=== PATIENT | male | born 1950 | race Caucasian/White ===

== ENCOUNTER 2019-01-30 20:08 | Inpatient (IN) | payer MEDICARE ==
[~2019-01-30] VITALS: Ht 175.3 cm; Wt 59.9 kg
[2019-01-30 20:29] LABS: BASO # 0.1 x10^3/uL (0.0-0.2); BASO % 0 % (0-3); EOS # 0.1 x10^3/uL (0.0-0.7); EOS % 1 % (0-3); HEMATOCRIT 34.8 % (39.0-53.0); HEMOGLOBIN 11.4 g/dL (13.0-17.5); LYMPH # 1.1 x10^3/uL (1.0-4.8); LYMPH % 8 % (24-48); MEAN CORPUSCULAR HEMOGLOBIN 30 pg (25-35); MEAN CORPUSCULAR HGB CONC 33 g/dL (31-37); MEAN CORPUSCULAR VOLUME 90 fL (79-100); MONO # 1.2 x10^3/uL (0.0-1.1); MONO % 9 % (0-9); NEUT # 11.7 x10^3/uL (1.8-7.7); NEUT % 82 % (31-73); PLATELET COUNT 598 x10^3/uL (140-400); RED BLOOD COUNT 3.87 x10^6/uL (4.30-5.70); WHITE BLOOD COUNT 14.2 x10^3/uL (4.0-11.0)
[2019-01-30] MEDS ORDERED: IV NORMAL SALINE 1000ML BAG 1,000 ML IV ONE (20:30)
[2019-01-30 20:36] LABS: CALCIUM 8.2 mg/dL (8.5-10.1); CREATININE 0.8 mg/dL (0.7-1.3); GFR 96.1; POTASSIUM 4.6 mmol/L (3.5-5.1); PROTHROMBIN TIME PATIENT 15.4 SEC (11.7-14.0)
[2019-01-30 20:44] LABS: ALBUMIN 2.5 g/dL (3.4-5.0); ALBUMIN/GLOBULIN RATIO 0.7 (1.0-1.7); TOTAL BILIRUBIN 0.5 mg/dL (0.2-1.0); TOTAL PROTEIN 6.2 g/dL (6.4-8.2)
[2019-01-30] MEDS ORDERED: PANTOPRAZOLE IV PUSH 40 MG VIAL. IVP ONE (21:00)
--- NOTE | 2019-01-30 21:11 | PHYS DOC ---
Past Medical History Past Medical History: Arthritis, Other Additional Past Medical Histor: WEAK BLADDER, PARAPALEGIA, SPINAL CHORD INJURY Past Surgical History: Knee Replacement, Other Additional Past Surgical Histo: BLADDER Alcohol Use: Heavy Additional Information: 1 PINT WHISKEY/WEEK Drug Use: None Adult General Chief Complaint Chief Complaint: RECTAL BLEED [facility] HPI Patient is a 68 year old male who presents via EMS with complaining of rectal bleeding. Patient has chronic spinal cord injury with paraplegia and constipation and usually has bowel movements every 2 or 3 days. Patient states he did not have a good bowel movement for almost 2 weeks and had about 2 days ago after taking MiraLAX. Patient states he had the spontaneous rectal bleeding with large amount of blood on the floor of kitchen. Patient denies using anticoagulation medication or history of rectal bleeding, shortness of breath and chest pain, fever and chills, urinary symptom. Patient complaining of generalized weakness. Patient had a large rectal prolapse at arrival to ER that was reduced without problem and states he has had history of rectal prolapse and he was able to reduce the prolapse but this time he was not able to reduce the prolapse. Review of Systems Review of Systems Constitutional: Denies fever or chills [] Eyes: Denies change in visual acuity, redness, or eye pain [] HENT: Denies nasal congestion or sore throat [] Respiratory: Denies cough or shortness of breath [] Cardiovascular: No additional information not addressed in HPI [] GI: Denies abdominal pain, nausea, vomiting, diarrhea, reports rectal bleeding [] : Denies dysuria or hematuria [] Musculoskeletal: Denies back pain or joint pain [] Integument: Denies rash or skin lesions [] Neurologic: Denies headache, focal weakness or sensory changes [] Endocrine: Denies polyuria or polydipsia [] All other systems were reviewed and found to be within normal limits, except as documented in this note. Current Medications Current Medications Current Medications Medications (Trade) Dose Ordered Sig/Evaristo Start Time Stop Time Status Last Admin Dose Admin Pantoprazole Sodium (PROTONIX VIAL for IV PUSH) 40 mg 1X ONCE 01/30/19 21:00 01/30/19 21:01 DC 01/30/19 21:40 40 MG Sodium Chloride 1,000 ml @ 1,000 mls/hr 1X ONCE 01/30/19 20:30 01/30/19 21:29 DC 01/30/19 20:50 1,000 MLS/HR Allergies Allergies Allergies Coded Allergies Type Severity Reaction Last Updated Verified No Known Drug Allergies 01/30/19 No Physical Exam Physical Exam Constitutional: Well developed, well nourished, mild distress, non-toxic appearance, mild pallor. [] HENT: Normocephalic, atraumatic. Eyes: PERRLA, EOMI, conjunctiva normal, no discharge. [] Neck: Normal range of motion, no tenderness, supple, no stridor. [] Cardiovascular:Heart rate regular rhythm, no murmur [] Lungs & Thorax: Bilateral breath sounds clear to auscultation [] Abdomen: Bowel sounds normal, soft, no tenderness, no masses, no pulsatile masses. Evaluation of extremity present of N showed a large circular rectal prolapse with mild bleeding that was reduced without problem. Skin: Warm, dry, no erythema, no rash. [] Back: No tenderness, no CVA tenderness. [] Extremities: Left below knee amputation, paraplegic. Neurologic: Alert and oriented X 3, paraplegic Psychologic: Affect normal, judgement normal, mood normal. [] Current Patient Data Vital Signs Vital Signs Date Time Temp Pulse Resp B/P (MAP) Pulse Ox O2 Delivery O2 Flow Rate FiO2 01/30/19 20:35 98.8 90 16 97/55 (69) 96 Room Air 98.8 Lab Values Laboratory Tests Test 01/30/19 20:15 White Blood Count 14.2 x10^3/uL (4.0-11.0) H Red Blood Count 3.87 x10^6/uL (4.30-5.70) L Hemoglobin 11.4 g/dL (13.0-17.5) L Hematocrit 34.8 % (39.0-53.0) L Mean Corpuscular Volume 90 fL (79-100) Mean Corpuscular Hemoglobin 30 pg (25-35) Mean Corpuscular Hemoglobin Concent 33 g/dL (31-37) Red Cell Distribution Width 13.0 % (11.5-14.5) Platelet Count 598 x10^3/uL (140-400) H Neutrophils (%) (Auto) 82 % (31-73) H Lymphocytes (%) (Auto) 8 % (24-48) L Monocytes (%) (Auto) 9 % (0-9) Eosinophils (%) (Auto) 1 % (0-3) Basophils (%) (Auto) 0 % (0-3) Neutrophils # (Auto) 11.7 x10^3/uL (1.8-7.7) H Lymphocytes # (Auto) 1.1 x10^3/uL (1.0-4.8) Monocytes # (Auto) 1.2 x10^3/uL (0.0-1.1) H Eosinophils # (Auto) 0.1 x10^3/uL (0.0-0.7) Basophils # (Auto) 0.1 x10^3/uL (0.0-0.2) Prothrombin Time 15.4 SEC (11.7-14.0) H Prothrombin Time INR 1.3 (0.8-1.1) H Activated Partial Thromboplast Time 28 SEC (24-38) Sodium Level 135 mmol/L (136-145) L Potassium Level 4.6 mmol/L (3.5-5.1) Chloride Level 97 mmol/L (98-107) L Carbon Dioxide Level 26 mmol/L (21-32) Anion Gap 12 (6-14) Blood Urea Nitrogen 15 mg/dL (8-26) Creatinine 0.8 mg/dL (0.7-1.3) Estimated GFR (Cockcroft-Gault) 96.1 BUN/Creatinine Ratio 19 (6-20) Glucose Level 122 mg/dL (70-99) H Calcium Level 8.2 mg/dL (8.5-10.1) L Total Bilirubin 0.5 mg/dL (0.2-1.0) Aspartate Amino Transferase (AST) 16 U/L (15-37) Alanine Aminotransferase (ALT) 20 U/L (16-63) Alkaline Phosphatase 71 U/L (46-116) Troponin I Quantitative < 0.017 ng/mL (0.000-0.055) GM-Oge-R-Type Natriuretic Peptide 157 pg/mL (0-124) H Total Protein 6.2 g/dL (6.4-8.2) L Albumin 2.5 g/dL (3.4-5.0) L Albumin/Globulin Ratio 0.7 (1.0-1.7) L Lipase 57 U/L (73-393) L Laboratory Tests 01/30/19 20:15 Laboratory Tests 01/30/19 20:15 EKG EKG [] Radiology/Procedures Radiology/Procedures [][facility] [address] [place] [address] IMAGING REPORT Signed PATIENT: STEVEN CUMMINS ACCOUNT: [id number] : 1950 LOCATION: 6 SOUTH AGE: 68 SEX: M EXAM STATUS: ADM IN ORD. PHYSICIAN: CORDELIA GAUTHIER MD REASON: rectal bleeding and anal prolapse PROCEDURE: CT ABD PELV W/ IV CONTRST ONLY Exam: CT abdomen and pelvis with contrast INDICATION: Rectal bleeding TECHNIQUE: Sequential axial images through the abdomen and pelvis obtained following the administration of 75 mL of Omnipaque 300 IV contrast. Sagittal and coronal reformatted images were reconstructed from the axial data and reviewed. Comparisons: None FINDINGS: Heart size is normal. No pericardial effusion. 4 mm nodule left lower lobe series 2 image 6. No pleural effusion. Vague hypoattenuating lesion within the right hepatic lobe series 2 image 16 measuring 1.4 cm. Otherwise, liver, spleen, pancreas and adrenals are unremarkable. Gallbladder is distended. Kidneys demonstrate symmetric enhancement. No perinephric inflammation or hydronephrosis. No renal or ureteral calculi are identified. Bladder is partially distended and appears thin walled. Uterus is absent. Diffuse circumferential wall thickening at the rectum with surrounding haziness in the adjacent fat. There is a very large stool burden within a dilated colon. The small bowel is unremarkable. Small hiatal hernia. No free intra-abdominal air or fluid. Abdominal aorta has a normal course and caliber. Abdominal vasculature is patent. No enlarged intra-abdominal lymph nodes are identified. Partially visualized peripheral enhancing fluid collection adjacent to the left ischial Tuberosity. This measures at least 4.7 cm in size. Metallic fragments in the posterior paraspinal soft tissues as well as one in the spinal canal at the T12-L1 level. No suspicious osseous lesion or acute fracture. No suspicious osseous lesions or acute fractures. IMPRESSION: 1. Diffuse circumferential wall thickening and submucosal edema of the rectum with adjacent inflammatory changes. This is favored to be infectious or inflammatory in etiology, however colonoscopy post treatment to ensure no underlying lesion is recommended. 2. Dilated colon diffusely full of stool. This may be secondary to obstruction at the rectum given the above findings. 3. Partially visualized fluid collection adjacent to the left ischial tuberosity. Correlate with physical exam to determine need for further imaging. Differential considerations include abscess or ulcer. 4. Vague hypoattenuating lesion within the right hepatic lobe measuring 1.4 cm. Further evaluation with nonemergent abdomen MRI with and without contrast is recommended. 5. A 4 mm pulmonary nodule left lower lobe. In a low-risk patient no further follow-up imaging is recommended. A high-risk patient and optional one-year follow-up CT can BE performed. Exposure: One or more of the following in the visualized dose reduction techniques were utilized for this examination: 1. Automated exposure control 2. Adjustment of the MA and/or KV according to patient size 3. Use of iterative of reconstructive technique Electronically signed by: Rex Wallace MD (01/30/2019 10:12 PM) [facility] DICTATED and SIGNED BY: RXE WALLACE MD DATE: 01/30/192211 Course & Med Decision Making Course & Med Decision Making Pertinent Labs and Imaging studies reviewed. (See chart for details) Evaluation of patient in ER showed 68-year-old male patient brought in by EMS with rectal bleeding. Patient had a large rectal prolapse that is reduced without problem. Hemoglobin was 11. CT abdomen showed rectal inflammation and fluid collection and pelvis. Patient did not have fever or toxic symptom. Patient requiring admission for further evaluation and treatment. Discussed with Dr. Vicente who is in agreement with admission. Discussed findings and plan with patient and family, who acknowledge understanding and agreement. Dragon Disclaimer Dragon Disclaimer This electronic medical record was generated, in whole or in part, using a voice recognition dictation system. Departure Departure Impression: Primary Impression: Rectal bleeding Additional Impressions: Rectal prolapse Paraplegia Below knee amputation status Disposition: ADMITTED INPATIENT (at 2107) Admitting Physician: Ti Vicente (accepted admission at 2107) Condition: IMPROVED Problem Qualifiers Additional Impressions: Below knee amputation status Laterality: left Qualified Codes: Z89.512 - Acquired absence of left leg below knee CORDELIA GAUTHIER MD Jan 30, 2019 21:11
[2019-01-30] MEDS ORDERED: IOHEXOL 300 MG/ML 100ML VIAL. IV ONE (21:30)
[2019-01-30] MEDS ORDERED: CONTRAST GIVEN. MC PRN (21:30)
[2019-01-30] MEDS ORDERED: ONDANSETRON PF 4 MG/2 ML VIAL. IV PRN (22:00)
--- NOTE | 2019-01-30 22:15 | RAD ---
Exam: CT abdomen and pelvis with contrast INDICATION: Rectal bleeding TECHNIQUE: Sequential axial images through the abdomen and pelvis obtained following the administration of 75 mL of Omnipaque 300 IV contrast. Sagittal and coronal reformatted images were reconstructed from the axial data and reviewed. Comparisons: None FINDINGS: Heart size is normal. No pericardial effusion. 4 mm nodule left lower lobe series 2 image 6. No pleural effusion. Vague hypoattenuating lesion within the right hepatic lobe series 2 image 16 measuring 1.4 cm. Otherwise, liver, spleen, pancreas and adrenals are unremarkable. Gallbladder is distended. Kidneys demonstrate symmetric enhancement. No perinephric inflammation or hydronephrosis. No renal or ureteral calculi are identified. Bladder is partially distended and appears thin walled. Uterus is absent. Diffuse circumferential wall thickening at the rectum with surrounding haziness in the adjacent fat. There is a very large stool burden within a dilated colon. The small bowel is unremarkable. Small hiatal hernia. No free intra-abdominal air or fluid. Abdominal aorta has a normal course and caliber. Abdominal vasculature is patent. No enlarged intra-abdominal lymph nodes are identified. Partially visualized peripheral enhancing fluid collection adjacent to the left ischial Tuberosity. This measures at least 4.7 cm in size. Metallic fragments in the posterior paraspinal soft tissues as well as one in the spinal canal at the T12-L1 level. No suspicious osseous lesion or acute fracture. No suspicious osseous lesions or acute fractures. IMPRESSION: 1. Diffuse circumferential wall thickening and submucosal edema of the rectum with adjacent inflammatory changes. This is favored to be infectious or inflammatory in etiology, however colonoscopy post treatment to ensure no underlying lesion is recommended. 2. Dilated colon diffusely full of stool. This may be secondary to obstruction at the rectum given the above findings. 3. Partially visualized fluid collection adjacent to the left ischial tuberosity. Correlate with physical exam to determine need for further imaging. Differential considerations include abscess or ulcer. 4. Vague hypoattenuating lesion within the right hepatic lobe measuring 1.4 cm. Further evaluation with nonemergent abdomen MRI with and without contrast is recommended. 5. A 4 mm pulmonary nodule left lower lobe. In a low-risk patient no further follow-up imaging is recommended. A high-risk patient and optional one-year follow-up CT can BE performed. Exposure: One or more of the following in the visualized dose reduction techniques were utilized for this examination: 1. Automated exposure control 2. Adjustment of the MA and/or KV according to patient size 3. Use of iterative of reconstructive technique Electronically signed by: Rex Duron MD (01/30/2019 10:12 PM) [facility]
[2019-01-30 23:00] VITALS: BP 112/65
[2019-01-31] MEDS: IV NORMAL SALINE 1000ML BAG 1,000 ML IV SCH ×4 (00:34→18:00)
[2019-01-31] MEDS ORDERED: TAMS0.4C97 PO (02:41)
[2019-01-31] MEDS ORDERED: OXYB5TAB7 PO (02:41)
[2019-01-31 03:48] VITALS: BP 98/58
[2019-01-31] MEDS ORDERED: POLY17PO29 PO (06:09)
--- NOTE | 2019-01-31 06:47 | EKG ---
[facility] [address] [place] [address] Test Date: 2019-01-30 Test Time: 20:53:07 Pat Name: STEVEN CUMMINS Department: Room: [facility] Gender: M [employer]: : 1950 Requested By: CORDELIA GAUTHIER Order Number: [id number] Reading MD: Emmanuel Raza MD Measurements Intervals [place] Rate: 92 P: 62 SD: 144 QRS: 46 QRSD: 74 T: 34 QT: 370 QTc: 462 Interpretive Statements SINUS RHYTHM NON-SPECIFIC ST/T CHANGES Electronically Signed On 01-31-2019 16:05:51 CDT by Emmanuel Raza MD
[2019-01-31 07:31] VITALS: BP 122/65
[2019-01-31 07:35] LABS: BASO % 1 % (0-3); EOS # 0.1 x10^3/uL (0.0-0.7); EOS % 2 % (0-3); HEMATOCRIT 26.5 % (39.0-53.0); LYMPH # 1.2 x10^3/uL (1.0-4.8); LYMPH % 18 % (24-48); MEAN CORPUSCULAR HEMOGLOBIN 31 pg (25-35); MEAN CORPUSCULAR HGB CONC 34 g/dL (31-37); MEAN CORPUSCULAR VOLUME 90 fL (79-100); MONO # 0.5 x10^3/uL (0.0-1.1); MONO % 8 % (0-9); NEUT # 4.8 x10^3/uL (1.8-7.7); NEUT % 72 % (31-73); PLATELET COUNT 439 x10^3/uL (140-400); RED BLOOD COUNT 2.95 x10^6/uL (4.30-5.70); RED CELL DISTRIBUTION WIDTH 12.9 % (11.5-14.5); WHITE BLOOD COUNT 6.6 x10^3/uL (4.0-11.0)
--- NOTE | 2019-01-31 09:40 | PDOC2 ---
GELYSWEETIE Yovanny INDUSTRIAL S[employer] AND HEALTH SPECIALIST 01/31/19 0940: UROLOGY CONSULT Date of Consult Date of Consult DATE: 01/31/19 TIME: 09:34 Source Source: Chart review, Patient History of Present Illness Reason for Visit: This 68 year old male was admitted to [facility] for rectal bleeding. Patient has chronic spinal cord injury with paraplegia and constipation and usually has bowel movements every 2 or 3 days. Patient states he did not have a good bowel movement for almost 2 weeks, then he had the spontaneous rectal bleeding with large amount of blood on the floor of kitchen from his rectum. .During the course of his hospitalization he complained of urinary incontinence and so Urology was consulted. RN reports that he had 600 ml of urinary retention and a Sue catheter was inserted. Currently the device is working well, urine is clear yellow and it is not bothersome to the patient. Per patient he was seen by Dr. Philip of [facility] a week ago, who gave him Flomax to take one tab daily. He has the medication with him. He is not sure how long he has been having retention, but reports that his whole body has been "having trouble and going down hill lately." Past Medical History CENTRAL NERVOUS SYSTEM: Other Renal/: Other (LUTS, BPH ) Current Problem List Problems: (1) Neurogenic bladder Current Medications Current Medications Current Medications Info (CONTRAST GIVEN -- Rx MONITORING) 1 each PRN DAILY PRN MC SEE COMMENTS; Start 01/30/19 at 21:30; Stop 02/01/19 at 21:29 Iohexol (Omnipaque 300 Mg/ml) 75 ml 1X ONCE IV Last administered on 01/30/19at 21:42; Start 01/30/19 at 21:30; Stop 01/30/19 at 21:31; Status DC Ondansetron HCl (Zofran) 4 mg PRN Q8HRS PRN IV NAUSEA/VOMITING; Start 01/30/19 at 22:00; Stop 01/31/19 at 21:59 Pantoprazole Sodium (PROTONIX VIAL for IV PUSH) 40 mg 1X ONCE IVP Last administered on 01/30/19at 21:40; Start 01/30/19 at 21:00; Stop 01/30/19 at 21:01; Status DC Polyethylene Glycol (miraLAX PACKET) 17 gm DAILY PO ; Start 01/31/19 at 10:00 Sodium Chloride 1,000 ml @ 150 mls/hr Q6H40M IV Last administered on 01/31/19at 06:18; Start 01/30/19 at 22:00; Stop 01/31/19 at 21:59 Sodium Chloride 1,000 ml @ 1,000 mls/hr 1X ONCE IV Last administered on 01/30/19at 20:50; Start 01/30/19 at 20:30; Stop 01/30/19 at 21:29; Status DC Tamsulosin HCl (Flomax) 0.4 mg HS PO ; Start 01/31/19 at 21:00 Allergies Allergies: Coded Allergies: No Known Drug Allergies (Unverified , 01/30/19) ROS Review Of Systems: CONSTITUTIONAL: No fever or chills EYES: No recent changes SKIN: No rash or itching CARDIOVASCULAR: No chest pain, syncope, palpitations, or edema RESPIRATORY: No SOB or cough GASTROINTESTINAL: No nausea, vomiting or abdominal pain NEUROLOGICAL: No headaches or weakness ENDOCRINE: No cold or heat intolerance GENITOURINARY: + neurogenic bladder MUSCULOSKELETAL: No back pain or joint pain LYMPHATICS: No enlarged lymph nodes PSYCHIATRIC: No anxiety or depression Physical Exam Physical Exam: General: Pleasant, no acute distress, well groomed Eyes: conjunctiva anicteric, eyes full range of motion ENT: moist oral mucosa, normal dentition Neck: Trachea midline, no masses Respiratory: unlabored breathing, not using accessory muscles, Abdomen: nontender, nondistended, no hepatosplenomegaly, no masses Skin: no rashes or skin lesions on visualized skin Psych: normal mood, affect. Alert and oriented x 3. Vitals VITALS Vital Signs Date Time Temp Pulse Resp B/P (MAP) Pulse Ox O2 Delivery O2 Flow Rate FiO2 01/31/19 07:31 98.2 84 18 122/65 (84) 98 Room Air 98.2 Labs Labs Laboratory Tests Test 01/30/19 20:15 01/31/19 06:50 White Blood Count 14.2 x10^3/uL (4.0-11.0) 6.6 x10^3/uL (4.0-11.0) Red Blood Count 3.87 x10^6/uL (4.30-5.70) 2.95 x10^6/uL (4.30-5.70) Hemoglobin 11.4 g/dL (13.0-17.5) 9.0 g/dL (13.0-17.5) Hematocrit 34.8 % (39.0-53.0) 26.5 % (39.0-53.0) Mean Corpuscular Volume 90 fL (79-100) 90 fL (79-100) Mean Corpuscular Hemoglobin 30 pg (25-35) 31 pg (25-35) Mean Corpuscular Hemoglobin Concent 33 g/dL (31-37) 34 g/dL (31-37) Red Cell Distribution Width 13.0 % (11.5-14.5) 12.9 % (11.5-14.5) Platelet Count 598 x10^3/uL (140-400) 439 x10^3/uL (140-400) Neutrophils (%) (Auto) 82 % (31-73) 72 % (31-73) Lymphocytes (%) (Auto) 8 % (24-48) 18 % (24-48) Monocytes (%) (Auto) 9 % (0-9) 8 % (0-9) Eosinophils (%) (Auto) 1 % (0-3) 2 % (0-3) Basophils (%) (Auto) 0 % (0-3) 1 % (0-3) Neutrophils # (Auto) 11.7 x10^3/uL (1.8-7.7) 4.8 x10^3/uL (1.8-7.7) Lymphocytes # (Auto) 1.1 x10^3/uL (1.0-4.8) 1.2 x10^3/uL (1.0-4.8) Monocytes # (Auto) 1.2 x10^3/uL (0.0-1.1) 0.5 x10^3/uL (0.0-1.1) Eosinophils # (Auto) 0.1 x10^3/uL (0.0-0.7) 0.1 x10^3/uL (0.0-0.7) Basophils # (Auto) 0.1 x10^3/uL (0.0-0.2) 0.0 x10^3/uL (0.0-0.2) Prothrombin Time 15.4 SEC (11.7-14.0) Prothromb Time International Ratio 1.3 (0.8-1.1) Activated Partial Thromboplast Time 28 SEC (24-38) Sodium Level 135 mmol/L (136-145) Potassium Level 4.6 mmol/L (3.5-5.1) Chloride Level 97 mmol/L (98-107) Carbon Dioxide Level 26 mmol/L (21-32) Anion Gap 12 (6-14) Blood Urea Nitrogen 15 mg/dL (8-26) Creatinine 0.8 mg/dL (0.7-1.3) Estimated GFR (Cockcroft-Gault) 96.1 BUN/Creatinine Ratio 19 (6-20) Glucose Level 122 mg/dL (70-99) Calcium Level 8.2 mg/dL (8.5-10.1) Total Bilirubin 0.5 mg/dL (0.2-1.0) Aspartate Amino Transf (AST/SGOT) 16 U/L (15-37) Alanine Aminotransferase (ALT/SGPT) 20 U/L (16-63) Alkaline Phosphatase 71 U/L (46-116) Troponin I Quantitative < 0.017 ng/mL (0.000-0.055) XS-Ztb-Z-Type Natriuretic Peptide 157 pg/mL (0-124) Total Protein 6.2 g/dL (6.4-8.2) Albumin 2.5 g/dL (3.4-5.0) Albumin/Globulin Ratio 0.7 (1.0-1.7) Lipase 57 U/L (73-393) Laboratory Tests Test 01/30/19 20:15 01/31/19 06:50 White Blood Count 14.2 x10^3/uL (4.0-11.0) 6.6 x10^3/uL (4.0-11.0) Red Blood Count 3.87 x10^6/uL (4.30-5.70) 2.95 x10^6/uL (4.30-5.70) Hemoglobin 11.4 g/dL (13.0-17.5) 9.0 g/dL (13.0-17.5) Hematocrit 34.8 % (39.0-53.0) 26.5 % (39.0-53.0) Mean Corpuscular Volume 90 fL (79-100) 90 fL (79-100) Mean Corpuscular Hemoglobin 30 pg (25-35) 31 pg (25-35) Mean Corpuscular Hemoglobin Concent 33 g/dL (31-37) 34 g/dL (31-37) Red Cell Distribution Width 13.0 % (11.5-14.5) 12.9 % (11.5-14.5) Platelet Count 598 x10^3/uL (140-400) 439 x10^3/uL (140-400) Neutrophils (%) (Auto) 82 % (31-73) 72 % (31-73) Lymphocytes (%) (Auto) 8 % (24-48) 18 % (24-48) Monocytes (%) (Auto) 9 % (0-9) 8 % (0-9) Eosinophils (%) (Auto) 1 % (0-3) 2 % (0-3) Basophils (%) (Auto) 0 % (0-3) 1 % (0-3) Neutrophils # (Auto) 11.7 x10^3/uL (1.8-7.7) 4.8 x10^3/uL (1.8-7.7) Lymphocytes # (Auto) 1.1 x10^3/uL (1.0-4.8) 1.2 x10^3/uL (1.0-4.8) Monocytes # (Auto) 1.2 x10^3/uL (0.0-1.1) 0.5 x10^3/uL (0.0-1.1) Eosinophils # (Auto) 0.1 x10^3/uL (0.0-0.7) 0.1 x10^3/uL (0.0-0.7) Basophils # (Auto) 0.1 x10^3/uL (0.0-0.2) 0.0 x10^3/uL (0.0-0.2) Prothrombin Time 15.4 SEC (11.7-14.0) Prothromb Time International Ratio 1.3 (0.8-1.1) Activated Partial Thromboplast Time 28 SEC (24-38) Sodium Level 135 mmol/L (136-145) Potassium Level 4.6 mmol/L (3.5-5.1) Chloride Level 97 mmol/L (98-107) Carbon Dioxide Level 26 mmol/L (21-32) Anion Gap 12 (6-14) Blood Urea Nitrogen 15 mg/dL (8-26) Creatinine 0.8 mg/dL (0.7-1.3) Estimated GFR (Cockcroft-Gault) 96.1 BUN/Creatinine Ratio 19 (6-20) Glucose Level 122 mg/dL (70-99) Calcium Level 8.2 mg/dL (8.5-10.1) Total Bilirubin 0.5 mg/dL (0.2-1.0) Aspartate Amino Transf (AST/SGOT) 16 U/L (15-37) Alanine Aminotransferase (ALT/SGPT) 20 U/L (16-63) Alkaline Phosphatase 71 U/L (46-116) Troponin I Quantitative < 0.017 ng/mL (0.000-0.055) PH-Hra-Y-Type Natriuretic Peptide 157 pg/mL (0-124) Total Protein 6.2 g/dL (6.4-8.2) Albumin 2.5 g/dL (3.4-5.0) Albumin/Globulin Ratio 0.7 (1.0-1.7) Lipase 57 U/L (73-393) Images Images CT ABD/PELVIS IMPRESSION: 1. Diffuse circumferential wall thickening and submucosal edema of the rectum with adjacent inflammatory changes. This is favored to be infectious or inflammatory in etiology, however colonoscopy post treatment to ensure no underlying lesion is recommended. 2. Dilated colon diffusely full of stool. This may be secondary to obstruction at the rectum given the above findings. 3. Partially visualized fluid collection adjacent to the left ischial tuberosity. Correlate with physical exam to determine need for further imaging. Differential considerations include abscess or ulcer. 4. Vague hypoattenuating lesion within the right hepatic lobe measuring 1.4 cm. Further evaluation with nonemergent abdomen MRI with and without contrast is recommended. 5. A 4 mm pulmonary nodule left lower lobe. In a low-risk patient no further follow-up imaging is recommended. A high-risk patient and optional one-year follow-up CT can BE performed. Assessment/Plan Assessment/Plan Continue Flomax. Pt is not having any problems with leakage around catheter so do not recommend Ditrpan at this time Recommend keeping Sue in at least over mani weekend to allow for bowel recovery/healing. Will check back with patient on Sunday and re-assess then. Discussed with patient importance of movement and good bowel recovery for better chances of a successful voiding trial. Per Dr. Philip's last Urochart note: Concern for neurogenic bladder vs BPH. Will trial tamsulosin and if no improvement in 6 weeks obtain UDS/cysto. Renal US prior to f/u to r/o hydro, stones, etc. Will go ahead an order Renal US in light of this since patient is in house. Dr. Bueno to rou nd on patient over the weekend. YOUSIF BUENO MD 02/02/19 0922: UROLOGY CONSULT Assessment/Plan Assessment/Plan Agree with continuos bladder drainage till acute problems resolve. If not emptying better after cath dc, then recommend sic q4-6h wa. Will need UDS. Upper tract wnl. SWEETIE HONG APRN Jan 31, 2019 09:40 YOUSIF BUENO MD Feb 02, 2019 09:22
[2019-01-31] MEDS: POLYETHYLENE GLYCOL 3350 17 GM PACKET. PO SCH (10:00)
[2019-01-31 11:50] VITALS: BP 109/52
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
--- NOTE | 2019-01-31 13:23 | RAD ---
Indication: Echogenic bladder versus BHF. TECHNIQUE: Grayscale and color Doppler images of the bilateral kidneys and bladder COMPARISON: None FINDINGS: The left kidney measures 9.1 x 5.5 x 0.4 cm without hydronephrosis. Right kidney measures 9.1 x 5.5 x 4.4 cm without hydronephrosis. Bladder is decompressed with Sue catheter. Aorta and IVC not visualized. IMPRESSION: No hydronephrosis. Electronically signed by: Mervin Conley DO (01/31/2019 1:20 PM) [facility]
[2019-01-31] MEDS: PANTOPRAZOLE 40 MG TABLET.DR. PO SCH (13:49)
--- NOTE | 2019-01-31 14:40 | NUR ---
SW consulted for dc planning. Chart reviewed and pt lives at home alone. Pt might benefit from PT/OT to evaluate skilled needs. Will continue to follow.
[2019-01-31 15:00] VITALS: BP 124/62
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
[2019-01-31] MEDS: ENOXAPARIN 40 MG/0.4 ML SYRINGE. SQ SCH (16:00)
--- NOTE | 2019-01-31 16:17 | NUR ---
Wound care: Patient seen per wound care consult. See wound assessment. Patient has a stage III pressure ulcer to left ischium. Patient had large stool and is cleaned up, linens changed. Wound is cleansed and assessed. Dr. Cortes consulted and assessed wound at bedside. Recommendations for Honey-alginate to wound bed as it is slough covered and cover with Hydrocolloid and drape to keep moisture and stool off of dressing. Dressing applied. Patient is on a P-500 bed. Patient educated on turning every 2 hours. Patient repositioned. Dressing change instructions left in room and extra honey alginate left in room as well. Bed lowered and call light in reach. Will follow patient regarding wound care.
[2019-01-31 19:44] VITALS: BP 118/56
[2019-01-31] MEDS: TAMSULOSIN 0.4 MG CAP.ER.24H. PO SCH (21:30)
[2019-01-31] MEDS: MULTIVITAMIN with MINERAL TABLET. PO SCH (21:30)
[2019-01-31] MEDS: ASCORBIC ACID 500 MG TABLET PO SCH (21:31)
[2019-01-31 23:21] VITALS: BP 92/44
[2019-02-01 03:22] VITALS: BP 96/46
[2019-02-01 04:37] LABS: BASO % 1 % (0-3); EOS # 0.2 x10^3/uL (0.0-0.7); EOS % 3 % (0-3); HEMATOCRIT 24.7 % (39.0-53.0); HEMOGLOBIN 8.5 g/dL (13.0-17.5); LYMPH # 1.2 x10^3/uL (1.0-4.8); LYMPH % 19 % (24-48); MEAN CORPUSCULAR HEMOGLOBIN 31 pg (25-35); MEAN CORPUSCULAR HGB CONC 34 g/dL (31-37); MEAN CORPUSCULAR VOLUME 89 fL (79-100); MONO # 0.5 x10^3/uL (0.0-1.1); MONO % 9 % (0-9); NEUT # 4.2 x10^3/uL (1.8-7.7); NEUT % 68 % (31-73); PLATELET COUNT 412 x10^3/uL (140-400); RED BLOOD COUNT 2.78 x10^6/uL (4.30-5.70); RED CELL DISTRIBUTION WIDTH 12.6 % (11.5-14.5); WHITE BLOOD COUNT 6.2 x10^3/uL (4.0-11.0)
[2019-02-01 04:57] LABS: CALCIUM 7.3 mg/dL (8.5-10.1); CREATININE 0.5 mg/dL (0.7-1.3); GFR 165.4; POTASSIUM 4.2 mmol/L (3.5-5.1)
[2019-02-01 07:00] VITALS: BP 126/62
[2019-02-01] MEDS: PANTOPRAZOLE 40 MG TABLET.DR. PO SCH (07:47)
--- NOTE | 2019-02-01 07:52 | RAD ---
Examination: Frontal view of the abdomen HISTORY: History of rectal bleeding COMPARISON: None available FINDINGS: Mild air distended small bowel loops identified in the mid abdomen. Moderate amount of feces and gas noted in the colon. No evidence of free air noted under the hemidiaphragm. IMPRESSION: 1. Nonspecific bowel gas pattern. 2. Moderate amount of feces and gas noted throughout the colon likely constipation. Electronically signed by: Davin Monahan MD (02/01/2019 7:50 AM) [facility]
[2019-02-01] MEDS: POLYETHYLENE GLYCOL 3350 17 GM PACKET. PO SCH (08:28)
[2019-02-01] MEDS: MULTIVITAMIN with MINERAL TABLET. PO SCH (08:28)
[2019-02-01] MEDS: ASCORBIC ACID 500 MG TABLET PO SCH (08:28)
[2019-02-01 11:00] VITALS: BP 128/64
--- NOTE | 2019-02-01 12:48 | NUR ---
Deborah at [facility] division traffic superintendent at [phone] notified patient is Inpatient and has appointment for Sunday Outpatient with Torsten at 11 a.m. Patient verb. understanding Therapy Manager notified.
--- NOTE | 2019-02-01 13:41 | PDOC ---
PROGRESS NOTES Subjective Subjective Patient without complaint. Objective Objective Vital Signs Date Time Temp Pulse Resp B/P (MAP) Pulse Ox O2 Delivery O2 Flow Rate FiO2 02/01/19 11:00 98.3 75 16 128/64 (85) 97 Room Air 98.3 Intake and Output 02/01/19 06:59 Intake Total 0 ml Output Total 2825 ml Balance -2825 ml Intake Oral 0 ml Output Urine Total 2825 ml # Bowel Movements 3 Physical Exam Abdomen: Normal bowel sounds, Soft, No tenderness Heart: Regular rate Extremities: No edema General: Alert, Oriented X3, No acute distress Lungs: Clear to auscultation Assessment Assessment Problems Medical Problems: (1) Paraplegia Status: Acute (2) Rectal bleeding Status: Acute (3) Rectal prolapse Status: Acute Plan Plan of Care 1. Rectal prolapse - stable since reduction in ER. 2. Acute lower GI bleed - apparently due to prolapse, no evidence of ongoing bleeding. Hgb lower today, still on IVF, have d/c these. Lab shows decreased Fe, start po replacement. 3. pressure ulcer - continue wound care and offloading. 4. urinary retention - continue with Sue and Flomax. Renal u/s unremarkable. 5. malnutrition - continue MVI and diet as tolerated. 6. mobility deficit - continue therapies. Comment Review of Relevant I have reviewed the following items quynh (where applicable) has been applied. Labs Laboratory Tests Test 01/30/19 20:15 01/31/19 06:50 02/01/19 04:00 White Blood Count 14.2 x10^3/uL (4.0-11.0) 6.6 x10^3/uL (4.0-11.0) 6.2 x10^3/uL (4.0-11.0) Red Blood Count 3.87 x10^6/uL (4.30-5.70) 2.95 x10^6/uL (4.30-5.70) 2.78 x10^6/uL (4.30-5.70) Hemoglobin 11.4 g/dL (13.0-17.5) 9.0 g/dL (13.0-17.5) 8.5 g/dL (13.0-17.5) Hematocrit 34.8 % (39.0-53.0) 26.5 % (39.0-53.0) 24.7 % (39.0-53.0) Mean Corpuscular Volume 90 fL (79-100) 90 fL (79-100) 89 fL (79-100) Mean Corpuscular Hemoglobin 30 pg (25-35) 31 pg (25-35) 31 pg (25-35) Mean Corpuscular Hemoglobin Concent 33 g/dL (31-37) 34 g/dL (31-37) 34 g/dL (31-37) Red Cell Distribution Width 13.0 % (11.5-14.5) 12.9 % (11.5-14.5) 12.6 % (11.5-14.5) Platelet Count 598 x10^3/uL (140-400) 439 x10^3/uL (140-400) 412 x10^3/uL (140-400) Neutrophils (%) (Auto) 82 % (31-73) 72 % (31-73) 68 % (31-73) Lymphocytes (%) (Auto) 8 % (24-48) 18 % (24-48) 19 % (24-48) Monocytes (%) (Auto) 9 % (0-9) 8 % (0-9) 9 % (0-9) Eosinophils (%) (Auto) 1 % (0-3) 2 % (0-3) 3 % (0-3) Basophils (%) (Auto) 0 % (0-3) 1 % (0-3) 1 % (0-3) Neutrophils # (Auto) 11.7 x10^3/uL (1.8-7.7) 4.8 x10^3/uL (1.8-7.7) 4.2 x10^3/uL (1.8-7.7) Lymphocytes # (Auto) 1.1 x10^3/uL (1.0-4.8) 1.2 x10^3/uL (1.0-4.8) 1.2 x10^3/uL (1.0-4.8) Monocytes # (Auto) 1.2 x10^3/uL (0.0-1.1) 0.5 x10^3/uL (0.0-1.1) 0.5 x10^3/uL (0.0-1.1) Eosinophils # (Auto) 0.1 x10^3/uL (0.0-0.7) 0.1 x10^3/uL (0.0-0.7) 0.2 x10^3/uL (0.0-0.7) Basophils # (Auto) 0.1 x10^3/uL (0.0-0.2) 0.0 x10^3/uL (0.0-0.2) 0.0 x10^3/uL (0.0-0.2) Prothrombin Time 15.4 SEC (11.7-14.0) Prothromb Time International Ratio 1.3 (0.8-1.1) Activated Partial Thromboplast Time 28 SEC (24-38) Sodium Level 135 mmol/L (136-145) 138 mmol/L (136-145) Potassium Level 4.6 mmol/L (3.5-5.1) 4.2 mmol/L (3.5-5.1) Chloride Level 97 mmol/L (98-107) 105 mmol/L (98-107) Carbon Dioxide Level 26 mmol/L (21-32) 26 mmol/L (21-32) Anion Gap 12 (6-14) 7 (6-14) Blood Urea Nitrogen 15 mg/dL (8-26) 6 mg/dL (8-26) Creatinine 0.8 mg/dL (0.7-1.3) 0.5 mg/dL (0.7-1.3) Estimated GFR (Cockcroft-Gault) 96.1 165.4 BUN/Creatinine Ratio 19 (6-20) Glucose Level 122 mg/dL (70-99) 99 mg/dL (70-99) Calcium Level 8.2 mg/dL (8.5-10.1) 7.3 mg/dL (8.5-10.1) Total Bilirubin 0.5 mg/dL (0.2-1.0) Aspartate Amino Transf (AST/SGOT) 16 U/L (15-37) Alanine Aminotransferase (ALT/SGPT) 20 U/L (16-63) Alkaline Phosphatase 71 U/L (46-116) Troponin I Quantitative < 0.017 ng/mL (0.000-0.055) PN-Yuk-V-Type Natriuretic Peptide 157 pg/mL (0-124) Total Protein 6.2 g/dL (6.4-8.2) Albumin 2.5 g/dL (3.4-5.0) Albumin/Globulin Ratio 0.7 (1.0-1.7) Lipase 57 U/L (73-393) Iron Level 33 ug/dL (65-175) Total Iron Binding Capacity 116 ug/dL (250-450) Iron Saturation 28 % (15-34) Laboratory Tests Test 02/01/19 04:00 White Blood Count 6.2 x10^3/uL (4.0-11.0) Red Blood Count 2.78 x10^6/uL (4.30-5.70) Hemoglobin 8.5 g/dL (13.0-17.5) Hematocrit 24.7 % (39.0-53.0) Mean Corpuscular Volume 89 fL (79-100) Mean Corpuscular Hemoglobin 31 pg (25-35) Mean Corpuscular Hemoglobin Concent 34 g/dL (31-37) Red Cell Distribution Width 12.6 % (11.5-14.5) Platelet Count 412 x10^3/uL (140-400) Neutrophils (%) (Auto) 68 % (31-73) Lymphocytes (%) (Auto) 19 % (24-48) Monocytes (%) (Auto) 9 % (0-9) Eosinophils (%) (Auto) 3 % (0-3) Basophils (%) (Auto) 1 % (0-3) Neutrophils # (Auto) 4.2 x10^3/uL (1.8-7.7) Lymphocytes # (Auto) 1.2 x10^3/uL (1.0-4.8) Monocytes # (Auto) 0.5 x10^3/uL (0.0-1.1) Eosinophils # (Auto) 0.2 x10^3/uL (0.0-0.7) Basophils # (Auto) 0.0 x10^3/uL (0.0-0.2) Sodium Level 138 mmol/L (136-145) Potassium Level 4.2 mmol/L (3.5-5.1) Chloride Level 105 mmol/L (98-107) Carbon Dioxide Level 26 mmol/L (21-32) Anion Gap 7 (6-14) Blood Urea Nitrogen 6 mg/dL (8-26) Creatinine 0.5 mg/dL (0.7-1.3) Estimated GFR (Cockcroft-Gault) 165.4 Glucose Level 99 mg/dL (70-99) Calcium Level 7.3 mg/dL (8.5-10.1) Medications Current Medications Pantoprazole Sodium (PROTONIX VIAL for IV PUSH) 40 mg 1X ONCE IVP Last administered on 01/30/19at 21:40; Start 01/30/19 at 21:00; Stop 01/30/19 at 21:01; Status DC Sodium Chloride 1,000 ml @ 1,000 mls/hr 1X ONCE IV Last administered on 01/30/19at 20:50; Start 01/30/19 at 20:30; Stop 01/30/19 at 21:29; Status DC Iohexol (Omnipaque 300 Mg/ml) 75 ml 1X ONCE IV Last administered on 01/30/19at 21:42; Start 01/30/19 at 21:30; Stop 01/30/19 at 21:31; Status DC Info (CONTRAST GIVEN -- Rx MONITORING) 1 each PRN DAILY PRN MC SEE COMMENTS; Start 01/30/19 at 21:30; Stop 02/01/19 at 21:29 Ondansetron HCl (Zofran) 4 mg PRN Q8HRS PRN IV NAUSEA/VOMITING; Start 01/30/19 at 22:00; Stop 01/31/19 at 21:59; Status DC Sodium Chloride 1,000 ml @ 150 mls/hr Q6H40M IV Last administered on 01/31/19at 13:52; Start 01/30/19 at 22:00; Stop 01/31/19 at 21:59; Status DC Polyethylene Glycol (miraLAX PACKET) 17 gm DAILY PO Last administered on 02/01/19at 08:28; Start 01/31/19 at 10:00 Tamsulosin HCl (Flomax) 0.4 mg HS PO Last administered on 01/31/19at 21:31; Start 01/31/19 at 21:00 Pantoprazole Sodium (Protonix) 40 mg DAILYAC PO Last administered on 02/01/19at 07:47; Start 01/31/19 at 14:00 Enoxaparin Sodium (Lovenox 40mg Syringe) 40 mg Q24H SQ Last administered on 01/31/19at 18:05; Start 01/31/19 at 16:00 Ascorbic Acid (Vitamin C) 500 mg DAILY PO Last administered on 02/01/19at 08:28; Start 01/31/19 at 20:00 Multivitamins (Thera M Plus) 1 tab DAILY PO Last administered on 02/01/19at 08:28; Start 01/31/19 at 20:00 Active Scripts Active Reported Miralax (Polyethylene Glycol 3350) 17 Gm Powd.pack 1 Pkt PO DAILY Oxybutynin Chloride 5 Mg Tablet 5 Mg PO TID Flomax (Tamsulosin Hcl) 0.4 Mg Cap.er.24h 0.4 Mg PO HS Vitals/I & O Vital Sign - Last 24 Hours 01/31/19 01/31/19 01/31/19 01/31/19 15:00 19:44 20:00 23:21 Temp 98.2 98.5 98.2 98.2 98.5 98.2 Pulse 94 82 74 Resp 18 18 18 B/P (MAP) 124/62 (82) 118/56 (76) 92/44 (60) Pulse Ox 96 96 97 O2 Delivery Room Air Room Air Room Air Room Air 02/01/19 02/01/19 02/01/19 02/01/19 03:22 07:00 08:00 11:00 Temp 98.4 97.7 98.3 98.4 97.7 98.3 Pulse 82 89 75 Resp 16 18 16 B/P (MAP) 96/46 (63) 126/62 (83) 128/64 (85) Pulse Ox 96 98 97 O2 Delivery Room Air Room Air Room Air Room Air Intake and Output 01/31/19 01/31/19 02/01/19 14:59 22:59 06:59 Intake Total 0 ml Output Total 325 ml 2500 ml Balance -325 ml -2500 ml RASHAD CISNEROS MD Feb 01, 2019 13:41
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
--- NOTE | 2019-02-01 14:00 | NUR ---
D/W Dr. Kearns drop in Hgb. and patient on lovenox, to continue lovenox.
[2019-02-01] MEDS: FERROUS SULFATE 325 MG TABLET. PO SCH (14:17)
--- NOTE | 2019-02-01 14:18 | PDOC ---
Subjective: Subjective: Hgb now 8.5. 2 BMs today- no blood per nursing Objective: Vital Signs: Vital Signs Date Time Temp Pulse Resp B/P (MAP) Pulse Ox O2 Delivery O2 Flow Rate FiO2 02/01/19 11:00 98.3 75 16 128/64 (85) 97 Room Air 98.3 Labs: Laboratory Tests Test 02/01/19 04:00 White Blood Count 6.2 x10^3/uL (4.0-11.0) Red Blood Count 2.78 x10^6/uL (4.30-5.70) Hemoglobin 8.5 g/dL (13.0-17.5) Hematocrit 24.7 % (39.0-53.0) Mean Corpuscular Volume 89 fL (79-100) Mean Corpuscular Hemoglobin 31 pg (25-35) Mean Corpuscular Hemoglobin Concent 34 g/dL (31-37) Red Cell Distribution Width 12.6 % (11.5-14.5) Platelet Count 412 x10^3/uL (140-400) Neutrophils (%) (Auto) 68 % (31-73) Lymphocytes (%) (Auto) 19 % (24-48) Monocytes (%) (Auto) 9 % (0-9) Eosinophils (%) (Auto) 3 % (0-3) Basophils (%) (Auto) 1 % (0-3) Neutrophils # (Auto) 4.2 x10^3/uL (1.8-7.7) Lymphocytes # (Auto) 1.2 x10^3/uL (1.0-4.8) Monocytes # (Auto) 0.5 x10^3/uL (0.0-1.1) Eosinophils # (Auto) 0.2 x10^3/uL (0.0-0.7) Basophils # (Auto) 0.0 x10^3/uL (0.0-0.2) Sodium Level 138 mmol/L (136-145) Potassium Level 4.2 mmol/L (3.5-5.1) Chloride Level 105 mmol/L (98-107) Carbon Dioxide Level 26 mmol/L (21-32) Anion Gap 7 (6-14) Blood Urea Nitrogen 6 mg/dL (8-26) Creatinine 0.5 mg/dL (0.7-1.3) Estimated GFR (Cockcroft-Gault) 165.4 Glucose Level 99 mg/dL (70-99) Calcium Level 7.3 mg/dL (8.5-10.1) Physical Exam: Physical Exam: GEN: NAD HEENT: Atraumatic, PERRL LUNGS: CTAB HEART: RRR ABD: quiet BS, soft, round, non-tender EXTREMITY: LBKA NEURO/PSYCH: A & O �3 Assessment & Plan: Assessment : A/P: A/P: Rectal bleeding/prolapse, paraplegia Normocytic anemia- Hgb now 8.[address] - rectal wall thickening/inflammation, dilated colon w/ stool, left ischial tuberosity fluid collection, right hepatic lobe lesion, LLL pulm nodule Heartburn, pill dysphagia Chronic constipation CRC screen - none Daily alcohol use - Plan: 1) Continue to treat constipation 2) COnt PPI 3) Await surgery input on Sunday YEYO RUBIO MD Feb 01, 2019 14:18
[2019-02-01 15:00] VITALS: BP 108/61
[2019-02-01] MEDS: ENOXAPARIN 40 MG/0.4 ML SYRINGE. SQ SCH (15:45)
[2019-02-01 19:43] VITALS: BP 116/57
[2019-02-01] MEDS: TAMSULOSIN 0.4 MG CAP.ER.24H. PO SCH (21:22)
[2019-02-01 23:13] VITALS: BP 112/58
[2019-02-02 03:18] VITALS: BP 108/63
[2019-02-02 07:00] VITALS: BP 113/67
[2019-02-02] MEDS: MULTIVITAMIN with MINERAL TABLET. PO SCH (09:12)
[2019-02-02] MEDS: FERROUS SULFATE 325 MG TABLET. PO SCH (09:12)
[2019-02-02] MEDS: PANTOPRAZOLE 40 MG TABLET.DR. PO SCH (09:12)
[2019-02-02] MEDS: ASCORBIC ACID 500 MG TABLET PO SCH (09:12)
[2019-02-02] MEDS: POLYETHYLENE GLYCOL 3350 17 GM PACKET. PO SCH (09:13)
--- NOTE | 2019-02-02 09:55 | PDOC ---
PROGRESS NOTES Subjective Subjective feeling fine, no further bleeding, seems to be against surgery at the moment Objective Objective Vital Signs Date Time Temp Pulse Resp B/P (MAP) Pulse Ox O2 Delivery O2 Flow Rate FiO2 02/02/19 08:00 Room Air 02/02/19 07:00 98.3 69 16 113/67 (82) 95 98.3 Intake and Output 02/02/19 06:59 Intake Total 2560 ml Output Total 4000 ml Balance -1440 ml Intake Oral 1560 ml IV Total 1000 ml Output Urine Total 4000 ml # Bowel Movements 1 Physical Exam Physical Exam prolapse reduced Abdomen: Soft, No tenderness Heart: Regular rate General: Alert, Oriented X3 Psych/Mental Status: Mental status NL Assessment Assessment Problems Medical Problems: (1) Paraplegia Status: Acute (2) Rectal bleeding Status: Acute (3) Rectal prolapse Status: Acute Plan Plan of Care Will ask Dr Goldman to see tomorrow; pt seems to not want surgery Comment Review of Relevant I have reviewed the following items quynh (where applicable) has been applied. Labs Laboratory Tests Test 02/01/19 04:00 White Blood Count 6.2 x10^3/uL (4.0-11.0) Red Blood Count 2.78 x10^6/uL (4.30-5.70) Hemoglobin 8.5 g/dL (13.0-17.5) Hematocrit 24.7 % (39.0-53.0) Mean Corpuscular Volume 89 fL (79-100) Mean Corpuscular Hemoglobin 31 pg (25-35) Mean Corpuscular Hemoglobin Concent 34 g/dL (31-37) Red Cell Distribution Width 12.6 % (11.5-14.5) Platelet Count 412 x10^3/uL (140-400) Neutrophils (%) (Auto) 68 % (31-73) Lymphocytes (%) (Auto) 19 % (24-48) Monocytes (%) (Auto) 9 % (0-9) Eosinophils (%) (Auto) 3 % (0-3) Basophils (%) (Auto) 1 % (0-3) Neutrophils # (Auto) 4.2 x10^3/uL (1.8-7.7) Lymphocytes # (Auto) 1.2 x10^3/uL (1.0-4.8) Monocytes # (Auto) 0.5 x10^3/uL (0.0-1.1) Eosinophils # (Auto) 0.2 x10^3/uL (0.0-0.7) Basophils # (Auto) 0.0 x10^3/uL (0.0-0.2) Sodium Level 138 mmol/L (136-145) Potassium Level 4.2 mmol/L (3.5-5.1) Chloride Level 105 mmol/L (98-107) Carbon Dioxide Level 26 mmol/L (21-32) Anion Gap 7 (6-14) Blood Urea Nitrogen 6 mg/dL (8-26) Creatinine 0.5 mg/dL (0.7-1.3) Estimated GFR (Cockcroft-Gault) 165.4 Glucose Level 99 mg/dL (70-99) Calcium Level 7.3 mg/dL (8.5-10.1) Medications Current Medications Pantoprazole Sodium (PROTONIX VIAL for IV PUSH) 40 mg 1X ONCE IVP Last administered on 01/30/19at 21:40; Start 01/30/19 at 21:00; Stop 01/30/19 at 21:01; Status DC Sodium Chloride 1,000 ml @ 1,000 mls/hr 1X ONCE IV Last administered on 01/30/19at 20:50; Start 01/30/19 at 20:30; Stop 01/30/19 at 21:29; Status DC Iohexol (Omnipaque 300 Mg/ml) 75 ml 1X ONCE IV Last administered on 01/30/19at 21:42; Start 01/30/19 at 21:30; Stop 01/30/19 at 21:31; Status DC Info (CONTRAST GIVEN -- Rx MONITORING) 1 each PRN DAILY PRN MC SEE COMMENTS; Start 01/30/19 at 21:30; Stop 02/01/19 at 21:29; Status DC Ondansetron HCl (Zofran) 4 mg PRN Q8HRS PRN IV NAUSEA/VOMITING; Start 01/30/19 at 22:00; Stop 01/31/19 at 21:59; Status DC Sodium Chloride 1,000 ml @ 150 mls/hr Q6H40M IV Last administered on 01/31/19at 13:52; Start 01/30/19 at 22:00; Stop 01/31/19 at 21:59; Status DC Polyethylene Glycol (miraLAX PACKET) 17 gm DAILY PO Last administered on 02/02/19 09:13; Start 01/31/19 at 10:00 Tamsulosin HCl (Flomax) 0.4 mg HS PO Last administered on 02/01/19 21:22; Start 01/31/19 at 21:00 Pantoprazole Sodium (Protonix) 40 mg DAILYAC PO Last administered on 02/02/19 09:13; Start 01/31/19 at 14:00 Enoxaparin Sodium (Lovenox 40mg Syringe) 40 mg Q24H SQ Last administered on 02/01/19 15:45; Start 01/31/19 at 16:00 Ascorbic Acid (Vitamin C) 500 mg DAILY PO Last administered on 02/02/19 09:13; Start 01/31/19 at 20:00 Multivitamins (Thera M Plus) 1 tab DAILY PO Last administered on 02/02/19 09:13; Start 01/31/19 at 20:00 Ferrous Sulfate (Feosol) 325 mg DAILYWBKFT PO Last administered on 02/02/19 09:13; Start 02/01/19 at 14:00 Active Scripts Active Reported Miralax (Polyethylene Glycol 3350) 17 Gm Powd.pack 1 Pkt PO DAILY Oxybutynin Chloride 5 Mg Tablet 5 Mg PO TID Flomax (Tamsulosin Hcl) 0.4 Mg Cap.er.24h 0.4 Mg PO HS Vitals/I & O Vital Sign - Last 24 Hours 02/01/19 02/01/19 02/01/19 02/01/19 11:00 15:00 19:43 20:00 Temp 98.3 98.2 98.8 98.3 98.2 98.8 Pulse 75 73 78 Resp 16 12 18 B/P (MAP) 128/64 (85) 108/61 (77) 116/57 (76) Pulse Ox 97 94 96 O2 Delivery Room Air Room Air Room Air Room Air 02/01/19 02/02/19 02/02/19 02/02/19 23:13 03:18 07:00 08:00 Temp 98.9 98.6 98.3 98.9 98.6 98.3 Pulse 71 78 69 Resp 16 18 16 B/P (MAP) 112/58 (76) 108/63 (78) 113/67 (82) Pulse Ox 94 96 95 O2 Delivery Room Air Room Air Room Air Room Air Intake and Output 02/01/19 02/01/19 02/02/19 14:59 22:59 06:59 Intake Total 1140 ml 1420 ml Output Total 900 ml 1500 ml 1600 ml Balance 240 ml -80 ml -1600 ml DIANA DEL TORO MD Feb 02, 2019 09:55
[2019-02-02 11:00] VITALS: BP 107/58
--- NOTE | 2019-02-02 11:20 | PDOC ---
PROGRESS NOTES Subjective Subjective Patient without complaint. Objective Objective Vital Signs Date Time Temp Pulse Resp B/P (MAP) Pulse Ox O2 Delivery O2 Flow Rate FiO2 02/02/19 08:00 Room Air 02/02/19 07:00 98.3 69 16 113/67 (82) 95 98.3 Intake and Output 02/02/19 06:59 Intake Total 2560 ml Output Total 4000 ml Balance -1440 ml Intake Oral 1560 ml IV Total 1000 ml Output Urine Total 4000 ml # Bowel Movements 1 Physical Exam Abdomen: Normal bowel sounds, Soft, No tenderness Heart: Regular rate Extremities: No edema General: Alert, Oriented X3, No acute distress Lungs: Clear to auscultation Assessment Assessment Problems Medical Problems: (1) Paraplegia Status: Acute (2) Rectal bleeding Status: Acute (3) Rectal prolapse Status: Acute Plan Plan of Care 1. Rectal prolapse - stable, no recurrence. Bowels good with Miralax daily. Declines consideration of surgery at this time. 2. Lower GI bleed - no evidence of ongoing blood loss. Check CBC in AM. 3. anemia - iron-deficient, started on po Fe. 4. decubitus ulcer - continue wound care, patient again reminded to keep weight off that area when in bed. 5. urinary retention - continue Sue for now, on Flomax, Urology following. Renal u/s unremarkable. 6. malnutrition - continue MVI and diet as tolerated. 7. mobility deficit - continue therapies. Composition Roofer notified of admission and should see him for new stump socks. Comment Review of Relevant I have reviewed the following items quynh (where applicable) has been applied. Labs Laboratory Tests Test 02/01/19 04:00 White Blood Count 6.2 x10^3/uL (4.0-11.0) Red Blood Count 2.78 x10^6/uL (4.30-5.70) Hemoglobin 8.5 g/dL (13.0-17.5) Hematocrit 24.7 % (39.0-53.0) Mean Corpuscular Volume 89 fL (79-100) Mean Corpuscular Hemoglobin 31 pg (25-35) Mean Corpuscular Hemoglobin Concent 34 g/dL (31-37) Red Cell Distribution Width 12.6 % (11.5-14.5) Platelet Count 412 x10^3/uL (140-400) Neutrophils (%) (Auto) 68 % (31-73) Lymphocytes (%) (Auto) 19 % (24-48) Monocytes (%) (Auto) 9 % (0-9) Eosinophils (%) (Auto) 3 % (0-3) Basophils (%) (Auto) 1 % (0-3) Neutrophils # (Auto) 4.2 x10^3/uL (1.8-7.7) Lymphocytes # (Auto) 1.2 x10^3/uL (1.0-4.8) Monocytes # (Auto) 0.5 x10^3/uL (0.0-1.1) Eosinophils # (Auto) 0.2 x10^3/uL (0.0-0.7) Basophils # (Auto) 0.0 x10^3/uL (0.0-0.2) Sodium Level 138 mmol/L (136-145) Potassium Level 4.2 mmol/L (3.5-5.1) Chloride Level 105 mmol/L (98-107) Carbon Dioxide Level 26 mmol/L (21-32) Anion Gap 7 (6-14) Blood Urea Nitrogen 6 mg/dL (8-26) Creatinine 0.5 mg/dL (0.7-1.3) Estimated GFR (Cockcroft-Gault) 165.4 Glucose Level 99 mg/dL (70-99) Calcium Level 7.3 mg/dL (8.5-10.1) Medications Current Medications Pantoprazole Sodium (PROTONIX VIAL for IV PUSH) 40 mg 1X ONCE IVP Last administered on 01/30/19at 21:40; Start 01/30/19 at 21:00; Stop 01/30/19 at 21:01; Status DC Sodium Chloride 1,000 ml @ 1,000 mls/hr 1X ONCE IV Last administered on 01/30/19at 20:50; Start 01/30/19 at 20:30; Stop 01/30/19 at 21:29; Status DC Iohexol (Omnipaque 300 Mg/ml) 75 ml 1X ONCE IV Last administered on 01/30/19at 21:42; Start 01/30/19 at 21:30; Stop 01/30/19 at 21:31; Status DC Info (CONTRAST GIVEN -- Rx MONITORING) 1 each PRN DAILY PRN MC SEE COMMENTS; Start 01/30/19 at 21:30; Stop 02/01/19 at 21:29; Status DC Ondansetron HCl (Zofran) 4 mg PRN Q8HRS PRN IV NAUSEA/VOMITING; Start 01/30/19 at 22:00; Stop 01/31/19 at 21:59; Status DC Sodium Chloride 1,000 ml @ 150 mls/hr Q6H40M IV Last administered on 01/31/19 13:52; Start 01/30/19 at 22:00; Stop 01/31/19 at 21:59; Status DC Polyethylene Glycol (miraLAX PACKET) 17 gm DAILY PO Last administered on 02/02/19 09:13; Start 01/31/19 at 10:00 Tamsulosin HCl (Flomax) 0.4 mg HS PO Last administered on 02/01/19 21:22; Start 01/31/19 at 21:00 Pantoprazole Sodium (Protonix) 40 mg DAILYAC PO Last administered on 02/02/19 09:13; Start 01/31/19 at 14:00 Enoxaparin Sodium (Lovenox 40mg Syringe) 40 mg Q24H SQ Last administered on 02/01/19 15:45; Start 01/31/19 at 16:00 Ascorbic Acid (Vitamin C) 500 mg DAILY PO Last administered on 02/02/19 09:13; Start 01/31/19 at 20:00 Multivitamins (Thera M Plus) 1 tab DAILY PO Last administered on 02/02/19 09:13; Start 01/31/19 at 20:00 Ferrous Sulfate (Feosol) 325 mg DAILYWBKFT PO Last administered on 02/02/19 09:13; Start 02/01/19 at 14:00 Active Scripts Active Reported Miralax (Polyethylene Glycol 3350) 17 Gm Powd.pack 1 Pkt PO DAILY Oxybutynin Chloride 5 Mg Tablet 5 Mg PO TID Flomax (Tamsulosin Hcl) 0.4 Mg Cap.er.24h 0.4 Mg PO HS Vitals/I & O Vital Sign - Last 24 Hours 02/01/19 02/01/19 02/01/19 02/01/19 15:00 19:43 20:00 23:13 Temp 98.2 98.8 98.9 98.2 98.8 98.9 Pulse 73 78 71 Resp 12 18 16 B/P (MAP) 108/61 (77) 116/57 (76) 112/58 (76) Pulse Ox 94 96 94 O2 Delivery Room Air Room Air Room Air Room Air 02/02/19 02/02/19 02/02/19 03:18 07:00 08:00 Temp 98.6 98.3 98.6 98.3 Pulse 78 69 Resp 18 16 B/P (MAP) 108/63 (78) 113/67 (82) Pulse Ox 96 95 O2 Delivery Room Air Room Air Room Air Intake and Output 02/01/19 02/01/19 02/02/19 14:59 22:59 06:59 Intake Total 1140 ml 1420 ml Output Total 900 ml 1500 ml 1600 ml Balance 240 ml -80 ml -1600 ml RASHAD CISNEROS MD Feb 02, 2019 11:19
--- NOTE | 2019-02-02 14:50 | PDOC ---
Subjective: Subjective: no hgb today Objective: Vital Signs: Vital Signs Date Time Temp Pulse Resp B/P (MAP) Pulse Ox O2 Delivery O2 Flow Rate FiO2 02/02/19 11:00 98.8 74 16 107/58 (74) 96 Room Air 98.8 Labs: none today Physical Exam: Physical Exam: Physical Exam: Physical Exam: GEN: NAD HEENT: Atraumatic, PERRL LUNGS: CTAB HEART: RRR ABD: quiet BS, soft, round, non-tender EXTREMITY: LBKA NEURO/PSYCH: A & O �3 Assessment & Plan: Assessment : Assessment & Plan: Assessment : A/P: A/P: Rectal bleeding/prolapse, paraplegia Normocytic anemia- Hgb 8.[address] - rectal wall thickening/inflammation, dilated colon w/ stool, left ischial tuberosity fluid collection, right hepatic lobe lesion, LLL pulm nodule Heartburn, pill dysphagia Chronic constipation CRC screen - none Daily alcohol use - Plan: 1) Continue to treat constipation 2) COnt PPI 3) Await surgery input on Sunday 4) Check Hgb tomorrow YEYO RUBIO MD Feb 02, 2019 14:50
[2019-02-02 15:00] VITALS: BP 114/62
[2019-02-02] MEDS: ENOXAPARIN 40 MG/0.4 ML SYRINGE. SQ SCH (16:19)
--- NOTE | 2019-02-02 18:27 | NUR ---
Gave report to Rose MILNER on this patient. Transferred patient, faired well.
[2019-02-02 19:00] VITALS: BP 104/55
[2019-02-02] MEDS: TAMSULOSIN 0.4 MG CAP.ER.24H. PO SCH (21:14)
[2019-02-02 23:00] VITALS: BP 100/53
[2019-02-03 03:13] VITALS: BP 117/56
[2019-02-03 07:00] VITALS: BP 106/51
[2019-02-03 08:01] LABS: BASO % 1 % (0-3); EOS # 0.1 x10^3/uL (0.0-0.7); EOS % 2 % (0-3); HEMOGLOBIN 9.4 g/dL (13.0-17.5); LYMPH # 1.2 x10^3/uL (1.0-4.8); LYMPH % 19 % (24-48); MEAN CORPUSCULAR HEMOGLOBIN 30 pg (25-35); MEAN CORPUSCULAR HGB CONC 34 g/dL (31-37); MEAN CORPUSCULAR VOLUME 89 fL (79-100); MONO # 0.5 x10^3/uL (0.0-1.1); MONO % 8 % (0-9); NEUT # 4.7 x10^3/uL (1.8-7.7); NEUT % 71 % (31-73); PLATELET COUNT 524 x10^3/uL (140-400); RED BLOOD COUNT 3.16 x10^6/uL (4.30-5.70); WHITE BLOOD COUNT 6.6 x10^3/uL (4.0-11.0)
--- NOTE | 2019-02-03 08:09 | PDOC ---
KENNEDI MORAN APRN 02/03/19 0809: SURGICAL PROGRESS NOTE Subjective feels fine no prolapse currently no bleeding not interested in surgery Vital Signs Vital Signs Date Time Temp Pulse Resp B/P (MAP) Pulse Ox O2 Delivery O2 Flow Rate FiO2 02/03/19 03:13 98.3 79 18 117/56 (76) 96 Room Air 98.3 I&O Intake and Output 02/03/19 07:00 Intake Total 120 ml Output Total 2675 ml Balance -2555 ml Intake Oral 120 ml Output Urine Total 2675 ml # Bowel Movements 1 General: Alert, Oriented X3, Cooperative, No acute distress Abdomen: Soft, No tenderness Problem List Problems Medical Problems: (1) Paraplegia Status: Acute (2) Rectal bleeding Status: Acute (3) Rectal prolapse Status: Acute Assessment/Plan will review with Dr Goldman pt not interested in surgery LEONEL GOLDMAN MD 02/03/19 1131: SURGICAL PROGRESS NOTE Assessment/Plan Pt seen and examined. Agree with Ms. Moran's note Pt history reviewed. With prolapse, decub ulcer and chronic constipation, would favor colostomy. However, pt is not interested in surgery. Will sign off, but please call for questions. KENNEDI MORAN APRN Feb 03, 2019 08:09 LEONEL GOLDMAN MD Feb 03, 2019 11:31
[2019-02-03 08:11] LABS: CALCIUM 7.9 mg/dL (8.5-10.1); CREATININE 0.6 mg/dL (0.7-1.3); POTASSIUM 4.2 mmol/L (3.5-5.1)
[2019-02-03] MEDS: FERROUS SULFATE 325 MG TABLET. PO SCH (08:14)
[2019-02-03] MEDS: POLYETHYLENE GLYCOL 3350 17 GM PACKET. PO SCH (08:14)
[2019-02-03] MEDS: ASCORBIC ACID 500 MG TABLET PO SCH (08:14)
[2019-02-03] MEDS: MULTIVITAMIN with MINERAL TABLET. PO SCH (08:15)
[2019-02-03] MEDS: PANTOPRAZOLE 40 MG TABLET.DR. PO SCH (08:15)
--- NOTE | 2019-02-03 08:51 | PDOC ---
SUBJECTIVE Subjective Pt not in pain or discomfort from catheter. Still having diarrhea, wearing depends for this. Rep from [employer] coming today to help with prosthetic fitting, as he is not able to wear his prosthetic yet, and not very mobile. OBJECTIVE Objective Physical Exam: General appearance: Alert and Oriented Head: Normocephalic, without obvious abnormality Eyes: conjunctivae/corneas clear. PERRL, EOM's intact. Fundi benign Lungs: Regular respirations, non labored breathing Abdomen: soft, non-tender. No masses, no organomegaly Pelvic: + Sue catheter in place draining clear yellow urine. Device in good working order. Vital Signs Vital Signs Date Time Temp Pulse Resp B/P (MAP) Pulse Ox O2 Delivery O2 Flow Rate FiO2 02/03/19 07:00 98.2 65 14 106/51 (69) 96 Room Air 98.2 02/03/19 03:13 98.3 79 18 117/56 (76) 96 Room Air 98.3 02/02/19 23:00 99.1 73 18 100/53 (69) 96 Room Air 99.1 02/02/19 20:11 Room Air 02/02/19 19:00 97.8 66 18 104/55 (71) 100 Room Air 97.8 02/02/19 15:00 98.7 81 18 114/62 (79) 95 Room Air 98.7 02/02/19 11:00 98.8 74 16 107/58 (74) 96 Room Air 98.8 I & O Intake and Output 02/03/19 06:59 Intake Total 120 ml Output Total 2675 ml Balance -2555 ml Intake Oral 120 ml Output Urine Total 2675 ml # Bowel Movements 1 PHYSICAL EXAM Physical Exam Physical Exam: General appearance: Alert and Oriented Head: Normocephalic, without obvious abnormality Eyes: conjunctivae/corneas clear. PERRL, EOM's intact. Fundi benign Lungs: Regular respirations, non labored breathing Abdomen: soft, non-tender. No masses, no organomegaly Pelvic: + Use catheter in place draining clear yellow urine. Device in good w orking order. ASSESSMENT/PLAN Assessment/Plan Pt still having diarrhea, and not very mobile. He is going to have a visit from [facility] to help with prosthetic problems today. Encouraged movement after this happens. Ok to remove Sue today: Orders entered. Please remove Sue catheter and encourage voiding. May void into Condom catheter. Bladder scan between 1 and 2 pm. If PVR is greater than 350 please replace indwelling Sue. If PVR is less than 350 please leave Sue out and encourage voiding into Sue catheter or depends. Upper tract wnl. Pt already has follow up wit Tamera on 03/04/19 at 9 am at [facility] at [address]. Appointment card put on front og chart. [facility] is ordering condom catheters for patient to have them shipped to [facility] per Dr Zacarias's request (Patient's PCP) COMMENT Lab Laboratory Tests Test 02/03/19 06:55 White Blood Count 6.6 x10^3/uL (4.0-11.0) Red Blood Count 3.16 x10^6/uL (4.30-5.70) Hemoglobin 9.4 g/dL (13.0-17.5) Hematocrit 28.0 % (39.0-53.0) Mean Corpuscular Volume 89 fL (79-100) Mean Corpuscular Hemoglobin 30 pg (25-35) Mean Corpuscular Hemoglobin Concent 34 g/dL (31-37) Red Cell Distribution Width 13.0 % (11.5-14.5) Platelet Count 524 x10^3/uL (140-400) Neutrophils (%) (Auto) 71 % (31-73) Lymphocytes (%) (Auto) 19 % (24-48) Monocytes (%) (Auto) 8 % (0-9) Eosinophils (%) (Auto) 2 % (0-3) Basophils (%) (Auto) 1 % (0-3) Neutrophils # (Auto) 4.7 x10^3/uL (1.8-7.7) Lymphocytes # (Auto) 1.2 x10^3/uL (1.0-4.8) Monocytes # (Auto) 0.5 x10^3/uL (0.0-1.1) Eosinophils # (Auto) 0.1 x10^3/uL (0.0-0.7) Basophils # (Auto) 0.0 x10^3/uL (0.0-0.2) Sodium Level 136 mmol/L (136-145) Potassium Level 4.2 mmol/L (3.5-5.1) Chloride Level 103 mmol/L (98-107) Carbon Dioxide Level 28 mmol/L (21-32) Anion Gap 5 (6-14) Blood Urea Nitrogen 4 mg/dL (8-26) Creatinine 0.6 mg/dL (0.7-1.3) Estimated GFR (Cockcroft-Gault) 134.0 Glucose Level 117 mg/dL (70-99) Calcium Level 7.9 mg/dL (8.5-10.1) SWEETIE HONG APRN Feb 03, 2019 08:51
[2019-02-03] MEDS ORDERED: ASCO500T2 PO (09:10)
[2019-02-03] MEDS ORDERED: MULT1TAB90 PO (09:10)
[2019-02-03] MEDS ORDERED: PANT40TA77 PO (09:10)
[2019-02-03] MEDS ORDERED: FERR325T72 PO (09:10)
--- NOTE | 2019-02-03 09:13 | SNU/HH DC ---
DISCHARGE ORDERS DISCHARGE INFORMATION: DISCHARGE DATE: Feb 03, 2019 FINAL DIAGNOSIS Problems Medical Problems: (1) Paraplegia Status: Acute (2) Rectal bleeding Status: Acute (3) Rectal prolapse Status: Acute CONDITION ON DISCHARGE: Stable CODE STATUS: Code Status: Full FCI: SNF STAY <30 DAYS: Yes POST DISCHARGE ORDERS: ACTIVITY ORDERS: Activity as tolerated WEIGHT BEARING STATUS: As tolerated DIET AFTER DISCHARGE: Regular WOUND/INCISION CARE: Change dressing, Routine catheter care, No wound care needed OTHER ORDERS: Condum Cath TREATMENT/EQUIPMENT ORDERS: ADAPTIVE EQUIPMENT NEEDED: Brace/splint, Crutches Physical Therapy For: Evalulation/Treatment Occupational Therapy For: Evaluation/Treatment DISCHARGE MEDICATIONS: Home Meds Active Scripts Multivits,Ca,Minerals/Iron/Fa (THERA-M TABLET) 1 Each Tablet, 1 TAB PO DAILY for Wound care for 30 Days, #30 TAB Prov:GRUPO NAVAS MD 02/03/19 Ascorbic Acid (VITAMIN C) 500 Mg Tablet, 500 MG PO DAILY for suppliment for 30 Days, #30 TAB Prov:GRUPO NAVAS MD 02/03/19 Pantoprazole Sodium (PANTOPRAZOLE SODIUM ) 40 Mg Tablet.dr, 40 MG PO DAILYAC for GI Bleed for 30 Days, #30 TAB.SR Prov:GRUPO NAVAS MD 02/03/19 Ferrous Sulfate (FEOSOL) 325 Mg Tablet, 325 MG PO DAILYWBKFT for anemia for 30 Days, #30 TAB Prov:GRUPO NAVAS MD 02/03/19 Reported Medications Polyethylene Glycol 3350 (MIRALAX) 17 Gm Powd.pack, 1 PKT PO DAILY for cons tipation, PKT 01/31/19 Oxybutynin Chloride (OXYBUTYNIN CHLORIDE) 5 Mg Tablet, 5 MG PO TID for bladder spasms, TAB 01/31/19 Tamsulosin Hcl (FLOMAX) 0.4 Mg Cap.er.24h, 0.4 MG PO HS for retention, TAB 01/31/19 GRUPO NAVAS MD Feb 03, 2019 09:13
--- NOTE | 2019-02-03 10:38 | NUR ---
SS following up with discharge planning. Discharge order on the chart for nursing home unit. SS met with pt in room to discuss discharge planning and nursing home unit. Pt requesting [facility]. SS phoned and faxed referral and discharge orders to [facility], ; fax [phone]. SS awaiting acceptance decision and will proceed accordingly with discharge planning. Pt's RN notified.
[2019-02-03 10:40] VITALS: BP 110/60
--- NOTE | 2019-02-03 10:51 | PDOC ---
Subjective: Subjective: Stooling w/o bleeding, says prolapse not an issue, says he's being advanced to a regular diet. Objective: Objective: Reviewed chart - has discharge orders, has declined surgery. Reviewed w/ RN - stooling. Vital Signs: Vital Signs Date Time Temp Pulse Resp B/P (MAP) Pulse Ox O2 Delivery O2 Flow Rate FiO2 02/03/19 08:00 Room Air 02/03/19 07:00 98.2 65 14 106/51 (69) 96 98.2 Labs: Laboratory Tests Test 02/03/19 06:55 White Blood Count 6.6 x10^3/uL Red Blood Count 3.16 x10^6/uL Hemoglobin 9.4 g/dL Hematocrit 28.0 % Mean Corpuscular Volume 89 fL Mean Corpuscular Hemoglobin 30 pg Mean Corpuscular Hemoglobin Concent 34 g/dL Red Cell Distribution Width 13.0 % Platelet Count 524 x10^3/uL Neutrophils (%) (Auto) 71 % Lymphocytes (%) (Auto) 19 % Monocytes (%) (Auto) 8 % Eosinophils (%) (Auto) 2 % Basophils (%) (Auto) 1 % Neutrophils # (Auto) 4.7 x10^3/uL Lymphocytes # (Auto) 1.2 x10^3/uL Monocytes # (Auto) 0.5 x10^3/uL Eosinophils # (Auto) 0.1 x10^3/uL Basophils # (Auto) 0.0 x10^3/uL Sodium Level 136 mmol/L Potassium Level 4.2 mmol/L Chloride Level 103 mmol/L Carbon Dioxide Level 28 mmol/L Anion Gap 5 Blood Urea Nitrogen 4 mg/dL Creatinine 0.6 mg/dL Estimated GFR (Cockcroft-Gault) 134.0 Glucose Level 117 mg/dL Calcium Level 7.9 mg/dL PE: GEN: NAD LUNGS: CTAB HEART: RRR ABD: NABS, S/ND/NT NEURO/PSYCH: A & O �3 A/P: Rectal bleeding/prolapse, chronic constipation - improved Paraplegia ACD -- Plans for DC as above. Would continue Miralax and PPI long-term. DI PERKINS Feb 03, 2019 10:51
--- NOTE | 2019-02-03 13:18 | NUR ---
SS following up with discharge planning. Pt accepted at [facility]. Pt will discharge today and go to [facility] at 1400 via [facility] transport, . Pt and pt's RN notified.
--- NOTE | 2019-02-03 14:30 | NUR ---
Discharge Note: LEATHA CUMMINS CANTON Discharge instructions and discharge home medications reviewed with Other facility and a copy given. All questions have been answered and understanding verbalized. Report given to JOSE Strong at [facility], no concerns voiced. The following instructions and handouts were given: information about plan of care, medications, wound, etc. Discontinued lines and drains: IV line in right forearm removed, catheter tip intact. Patient discharged to [facility] with [facility] transport, wheelchair used for mobility to discharge vehicle.
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
== END 2019-02-03 14:30 | DRG 377 ==
LOC: ER 20:08 → 6 SOUTH 21:04 → 4 NORTH 02-02 18:08
PROVIDERS: ADMIT Family Medicine; ATTEND Family Medicine
PROC: 0HD8XZZ Extraction of Buttock Skin, External Approach (ICD-10-PCS; principal; 2019-01-31)
DX: K92.2 Gastrointestinal hemorrhage, unspecified (principal); L89.323 Pressure ulcer of left buttock, stage 3; E43 Unspecified severe protein-calorie malnutrition; K59.39 Other megacolon; G82.20 Paraplegia, unspecified; Z68.1 Body mass index [BMI] 19.9 or less, adult; K62.3 Rectal prolapse; D50.0 Iron deficiency anemia secondary to blood loss (chronic); K59.09 Other constipation; L89.229 Pressure ulcer of left hip, unspecified stage; N31.9 Neuromuscular dysfunction of bladder, unspecified; R13.10 Dysphagia, unspecified; Z80.1 Family history of malignant neoplasm of trachea, bronchus and lung; Z89.512 Acquired absence of left leg below knee; Z96.659 Presence of unspecified artificial knee joint; M19.90 Unspecified osteoarthritis, unspecified site; N40.1 Benign prostatic hyperplasia with lower urinary tract symptoms; Z60.2 Problems related to living alone; D50.9 Iron deficiency anemia, unspecified
CPT/HCPCS: 36415; 74018; 74177; 76770; 80048; 80053; 83540; 83550; 83690; 83880; 84484; 85025; 85610; 85730; 86850; 86900; 86901; 93005; 96361; 96374; C9113; J1650; J7030; Q9967; 97110; 97530; 97535; 99285-25; G0378

== ENCOUNTER 2019-06-05 12:30 | Inpatient (IN) | payer MEDICARE ==
[~2019-06-05] VITALS: Ht 170.2 cm; Wt 58.2 kg
[~2019-06-05 12:30] MED LIST: ASCO500T2 PO; ESCITALOPRAM OX10 MG PO; FERR325T72 PO; MULT1TAB90 PO; OXYB5TAB10 PO; PANT40TA77 PO; POLY17PO29 PO; TAMS0.4C97 PO
[2019-06-17] VITALS (10 sets, daily range): BP systolic 114–134; BP diastolic 63–79
[2019-06-17] MEDS ORDERED: BUPIVACAINE-EPI 0.5%-1:200000 MPF 30 ML VIAL. INJ ONE (06:00)
[2019-06-17] MEDS ORDERED: LIDOCAINE 1% PF 2 ML VIAL. ID PRN (07:00)
[2019-06-17] MEDS ORDERED: HYDROmorphone 2 MG/ML VIAL IV PRN (07:00)
[2019-06-17] MEDS ORDERED: MORPHINE SULFATE 2 MG/ML VIAL. IV PRN (07:00)
[2019-06-17] MEDS ORDERED: IV RINGERS,LACTATED 1000ML 1,000 ML IV SCH (07:00)
[2019-06-17] MEDS ORDERED: fentaNYL PF VIAL 100 MCG/2 ML VIAL IV PRN ×2 (07:00)
[2019-06-17] MEDS ORDERED: PROCHLORPERAZINE 10 MG/2 ML VIAL. IV PRN (07:00)
[2019-06-17] MEDS ORDERED: PROPOFOL 20 ML IV ONE (08:16)
[2019-06-17] MEDS ORDERED: DEXAMETHASONE SOD PHOS 4 MG/ML VIAL ONE (08:17)
[2019-06-17] MEDS ORDERED: LIDOCAINE 2% PF 5 ML VIAL. ONE (08:17)
[2019-06-17] MEDS ORDERED: fentaNYL PF VIAL 100 MCG/2 ML VIAL ONE (08:17)
[2019-06-17] MEDS ORDERED: FAMOTIDINE 20 MG/2 ML VIAL ONE (08:17)
[2019-06-17] MEDS ORDERED: ONDANSETRON PF 4 MG/2 ML VIAL. ONE (08:17)
[2019-06-17] MEDS ORDERED: ROCURONIUM 50 MG/5 ML VIAL. ONE (08:50)
--- NOTE | 2019-06-17 09:00 | PDOC1 ---
History and Physical Date of Admission Date of Admission DATE: 06/17/19 TIME: 08:56 Identification/Chief Complaint Chief Complaint Rectal prolapse Source Source: Chart review, Patient History of Present Illness History of Present Illness 69 yo M with paraplegia with increasing issues with rectal prolapse. This occurs spontaneously and with stool. No obvious obstruction. He is not interested in colostomy. He presents for surgical repair. Colonoscopy demonstrates redundant colon and constipation, but no masses or obstruction. Past Medical History Cardiovascular: No pertinent hx Pulmonary: No pertinent hx CENTRAL NERVOUS SYSTEM: Other GI: Constipation, GI bleed, Hemorrhoids Hepatobiliary: No pertinent hx Psych: No pertinent hx Rheumatologic: Other Renal/: Other Endocrine: No pertinent hx Past Surgical History Past Surgical History: Other Family History Family History: Cancer Family History: Parent Social History ALCOHOL: other Drugs: None Current Medications Current Medications Current Medications Fentanyl Citrate (Fentanyl 2ml Vial) 25 mcg PRN Q5MIN PRN IV MILD PAIN 1-3; Start 06/17/19 at 07:00; Stop 06/17/19 at 20:00 Fentanyl Citrate (Fentanyl 2ml Vial) 50 mcg PRN Q5MIN PRN IV MODERATE TO SEVERE PAIN; Start 06/17/19 at 07:00; Stop 06/17/19 at 20:00 Morphine Sulfate (Morphine Sulfate) 1 mg PRN Q10MIN PRN IV SEVERE PAIN 7-10; Start 06/17/19 at 07:00; Stop 06/17/19 at 20:00 Ringer's Solution 1,000 ml @ 30 mls/hr Q24H IV Last administered on 06/17/19at 08:35; Start 06/17/19 at 07:00; Stop 06/17/19 at 18:59 Lidocaine HCl (Xylocaine-Mpf 1% 2ml Vial) 2 ml PRN 1X PRN ID PRIOR TO IV START; Start 06/17/19 at 07:00; Stop 06/17/19 at 20:00 Hydromorphone HCl (Dilaudid) 0.5 mg PRN Q10MIN PRN IV SEV PAIN, Second choice; Start 06/17/19 at 07:00; Stop 06/17/19 at 20:00 Prochlorperazine Edisylate (Compazine) 5 mg PACU PRN PRN IV NAUSEA, MRX1; Start 06/17/19 at 07:00; Stop 06/17/19 at 20:00 Bupivacaine HCl/ Epinephrine Bitart (Sensorcain-Epi 0.5%-1:810150 Mpf) 30 ml 1X ONCE INJ ; Start 06/17/19 at 06:00; Stop 06/17/19 at 06:01; Status DC Metronidazole 100 ml @ 100 mls/hr 1X PREOP PRN IV PRIOR TO PROCEDURE; Start 06/17/19 at 06:00; Stop 06/17/19 at 18:00 Propofol 20 ml @ As Directed STK-MED ONCE IV ; Start 06/17/19 at 08:16; Stop 06/17/19 at 08:17; Status DC Lidocaine HCl (Lidocaine Pf 2% Vial) 5 ml STK-MED ONCE .ROUTE ; Start 06/17/19 at 08:17; Stop 06/17/19 at 08:17; Status DC Ondansetron HCl (Zofran) 4 mg STK-MED ONCE .ROUTE ; Start 06/17/19 at 08:17; Stop 06/17/19 at 08:17; Status DC Famotidine (Pepcid Vial) 20 mg STK-MED ONCE .ROUTE ; Start 06/17/19 at 08:17; Stop 06/17/19 at 08:17; Status DC Dexamethasone Sodium Phosphate (Decadron) 4 mg STK-MED ONCE .ROUTE ; Start 06/17/19 at 08:17; Stop 06/17/19 at 08:18; Status DC Fentanyl Citrate (Fentanyl 2ml Vial) 100 mcg STK-MED ONCE .ROUTE ; Start 06/17/19 at 08:17; Stop 06/17/19 at 08:18; Status DC Rocuronium [place] (Zemuron) 50 mg STK-MED ONCE .ROUTE ; Start 06/17/19 at 08:50; Stop 06/17/19 at 08:50; Status DC Active Scripts Active Thera-M Tablet (Multivits,Ca,Minerals/Iron/Fa) 1 Each Tablet 1 Tab PO DAILY 30 Days Vitamin C (Ascorbic Acid) 500 Mg Tablet 500 Mg PO DAILY 30 Days Pantoprazole Sodium (Pantoprazole Sodium) 40 Mg Tablet.dr 40 Mg PO DAILYAC 30 Days Feosol (Ferrous Sulfate) 325 Mg Tablet 325 Mg PO DAILYWBKFT 30 Days Reported Escitalopram Oxalate 10 Mg Tablet 10 Mg PO DAILY Miralax (Polyethylene Glycol 3350) 17 Gm Powd.pack 1 Pkt PO DAILY Oxybutynin Chloride 5 Mg Tablet 5 Mg PO TID Flomax (Tamsulosin Hcl) 0.4 Mg Cap.er.24h 0.4 Mg PO HS Allergies Allergies: Coded Allergies: No Known Drug Allergies (Unverified , 06/17/19) ROS Gastrointestinal: Yes Other (rectal prolapse with some bleeding) Physical Exam General: Alert, Oriented X3, Cooperative, No acute distress HEENT: EOMI Lungs: Normal air movement Abdomen: Soft, No tenderness Rectal Exam: other (rectal prolapse) Extremities: No clubbing, No cyanosis Skin: No rashes, No breakdown Neuro: Normal speech, Other (lower extremity paralysis, uses wheelchair.) Vitals Vitals Vital Signs Date Time Temp Pulse Resp B/P (MAP) Pulse Ox O2 Delivery O2 Flow Rate FiO2 06/17/19 08:27 98.8 69 20 95 98.8 06/17/19 08:05 104/58 Room Air VTE Prophylaxis Ordered VTE Prophylaxis Devices: Yes VTE Pharmacological Prophylaxi: Yes Assessment/Plan Assessment/Plan Rectal prolapse TO OR for altmeier procedure. R/R/B/A d/w pt and pt's supportive brother. Risks, including, but not limited to: bleeding, infection, damage to surrounding structures, risk of anesthesia, risk of , risk of anastomotic leak. They appear to understand, their questions are answered and they elect to proceed. LEONEL BACH MD Jun 17, 2019 09:00
[2019-06-17] MEDS ORDERED: ePHEDrine PF IN SALINE 50 MG/10 ML SYRINGE. IV ONE (09:03)
[2019-06-17] MEDS ORDERED: SEVOFLURANE 61 TO 120 MINUTES. IH ONE (09:33)
[2019-06-17] MEDS ORDERED: GLYCOPYRROLATE 1 MG/5 ML VIAL. ONE (09:34)
[2019-06-17] MEDS ORDERED: NEOSTIGMINE METHYLSULFATE 5 MG/5 ML SYRINGE. ONE (09:34)
[2019-06-17] MEDS ORDERED: GELATIN SPONGE SIZE 100. ONE (10:35)
--- NOTE | 2019-06-17 10:58 | PDOC4 ---
OPERATIVE NOTE Date: Date: Jun 17, 2019 Pre-Op Diagnosis: Rectal prolapse Post-Op Diagnosis: same Procedure Performed: altmeier procedure Surgeon: Zay Bach Anesthesia Type: GETA Blood Loss: 100 Specimans Obtained: rectum Findings: Large prolapse, no masses, poor tissue quality Complications: none Operative Note: After obtaining informed consent, patient was taken to OR, induced under GETA and prepped in the usual fashion in a high lithotomy procedure. Rectal exam was unremarkable. Prolapse was gradual taken out to fullest extent. Cautery was used to divided the rectum proximal to 1 cm proximal to dentate line. Rectum was unattached and sigmoid colon was brought to maximal extent. Minimal levator ani muscles encountered but remnants were tightened using 3 0 vicryl suture. No other viscera was noted. Sigmoid mesentery was taken with ligasure. Colon was divided with cautery and specimen was sent to pathology for evaluation. Rectal sigmoid anastomosis created with multiple interrupted 3 0 vicryl. Mucosal/submucosal anastomosis created with 3 0 PDS. Anastomosis evaluated and found to have no defects, under no tension and completely viable. Rectum readily accepted medium albarran. No other pathology noted. Dressing placed. Patient tolerated procedure well and sent to PACU in stable condition. All counts correct. Wound class is 4. LEONEL BACH MD Jun 17, 2019 10:58
[2019-06-17] MEDS ORDERED: NALOXONE 0.4 MG/ML VIAL. IV PRN (11:00)
[2019-06-17] MEDS ORDERED: HYDROcodone/APAP 5/325MG 1 TAB TABLET PO PRN (11:00)
[2019-06-17] MEDS ORDERED: 0.9 % SODIUM CHLORIDE 10 ML DISP.SYRIN. IV PRN (11:00)
[2019-06-17] MEDS ORDERED: ONDANSETRON PF 4 MG/2 ML VIAL. IVP PRN (11:00)
[2019-06-17] MEDS: IV RINGERS,LACTATED 1000ML 1,000 ML IV SCH ×2 (12:52→15:25)
[2019-06-17] MEDS: IV NORMAL SALINE 1000ML BAG 1,000 ML IV SCH (15:12)
[2019-06-17] MEDS: OXYBUTYNIN CHLORIDE 5 MG TABLET PO SCH ×2 (15:12→20:09)
[2019-06-17] MEDS: TAMSULOSIN 0.4 MG CAP.ER.24H. PO SCH (20:09)
[2019-06-17] MEDS: SENNOSIDES/DOCUSATE 8.6/50MG TABLET. PO SCH (20:09)
[2019-06-17] MEDS: ENOXAPARIN 40 MG/0.4 ML SYRINGE. SQ SCH (20:10)
[2019-06-18 03:00] VITALS: BP 115/75
[2019-06-18 05:04] LABS: BASO % 0 % (0-3); EOS % 0 % (0-3); HEMATOCRIT 34.4 % (39.0-53.0); HEMOGLOBIN 11.4 g/dL (13.0-17.5); LYMPH # 1.9 x10^3/uL (1.0-4.8); LYMPH % 22 % (24-48); MEAN CORPUSCULAR HEMOGLOBIN 27 pg (25-35); MEAN CORPUSCULAR HGB CONC 33 g/dL (31-37); MEAN CORPUSCULAR VOLUME 81 fL (79-100); MONO # 0.9 x10^3/uL (0.0-1.1); MONO % 10 % (0-9); NEUT % 68 % (31-73); PLATELET COUNT 296 x10^3/uL (140-400); RED BLOOD COUNT 4.26 x10^6/uL (4.30-5.70); WHITE BLOOD COUNT 8.8 x10^3/uL (4.0-11.0)
[2019-06-18] MEDS: IV RINGERS,LACTATED 1000ML 1,000 ML IV SCH ×2 (06:47→16:47)
[2019-06-18 07:00] VITALS: BP 122/72
[2019-06-18] MEDS: FERROUS SULFATE 325 MG TABLET. PO SCH (08:00)
[2019-06-18] MEDS: CITALOPRAM 20 MG TABLET. PO SCH (09:00)
[2019-06-18] MEDS: POLYETHYLENE GLYCOL 3350 17 GM PACKET. PO SCH (09:00)
[2019-06-18] MEDS: SENNOSIDES/DOCUSATE 8.6/50MG TABLET. PO SCH ×2 (09:00→20:02)
[2019-06-18] MEDS: OXYBUTYNIN CHLORIDE 5 MG TABLET PO SCH ×3 (09:12→20:03)
[2019-06-18] MEDS: MULTIVITAMIN with MINERAL TABLET. PO SCH (09:12)
[2019-06-18] MEDS: ASCORBIC ACID 500 MG TABLET PO SCH (09:13)
[2019-06-18] MEDS: PANTOPRAZOLE 40 MG TABLET.DR. PO SCH (09:13)
[2019-06-18] MEDS: IV NORMAL SALINE 1000ML BAG 1,000 ML IV SCH (09:16)
[2019-06-18 11:00] VITALS: BP 124/70
--- NOTE | 2019-06-18 13:05 | PDOC ---
SURGICAL PROGRESS NOTE Subjective Pt without c/o, madhu PO, no n/v, no f/c, denies pain Vital Signs Vital Signs Date Time Temp Pulse Resp B/P (MAP) Pulse Ox O2 Delivery O2 Flow Rate FiO2 06/18/19 11:00 98.3 99 18 124/70 (88) 94 Room Air 98.3 06/17/19 11:15 8 I&O Intake and Output 06/18/19 07:00 Intake Total 2020 ml Output Total 1900 ml Balance 120 ml Intake Oral 720 ml IV Total 1300 ml Output Urine Total 1300 ml Stool Total 500 ml Estimated Blood Loss 100 ml General: Alert, Oriented X3, Cooperative, No acute distress Abdomen: Soft, No tenderness Labs Laboratory Tests Test 06/18/19 04:10 White Blood Count 8.8 x10^3/uL (4.0-11.0) Red Blood Count 4.26 x10^6/uL (4.30-5.70) Hemoglobin 11.4 g/dL (13.0-17.5) Hematocrit 34.4 % (39.0-53.0) Mean Corpuscular Volume 81 fL (79-100) Mean Corpuscular Hemoglobin 27 pg (25-35) Mean Corpuscular Hemoglobin Concent 33 g/dL (31-37) Red Cell Distribution Width 15.0 % (11.5-14.5) Platelet Count 296 x10^3/uL (140-400) Neutrophils (%) (Auto) 68 % (31-73) Lymphocytes (%) (Auto) 22 % (24-48) Monocytes (%) (Auto) 10 % (0-9) Eosinophils (%) (Auto) 0 % (0-3) Basophils (%) (Auto) 0 % (0-3) Neutrophils # (Auto) 6.0 x10^3/uL (1.8-7.7) Lymphocytes # (Auto) 1.9 x10^3/uL (1.0-4.8) Monocytes # (Auto) 0.9 x10^3/uL (0.0-1.1) Eosinophils # (Auto) 0.0 x10^3/uL (0.0-0.7) Basophils # (Auto) 0.0 x10^3/uL (0.0-0.2) Laboratory Tests Test 06/18/19 04:10 White Blood Count 8.8 x10^3/uL (4.0-11.0) Red Blood Count 4.26 x10^6/uL (4.30-5.70) Hemoglobin 11.4 g/dL (13.0-17.5) Hematocrit 34.4 % (39.0-53.0) Mean Corpuscular Volume 81 fL (79-100) Mean Corpuscular Hemoglobin 27 pg (25-35) Mean Corpuscular Hemoglobin Concent 33 g/dL (31-37) Red Cell Distribution Width 15.0 % (11.5-14.5) Platelet Count 296 x10^3/uL (140-400) Neutrophils (%) (Auto) 68 % (31-73) Lymphocytes (%) (Auto) 22 % (24-48) Monocytes (%) (Auto) 10 % (0-9) Eosinophils (%) (Auto) 0 % (0-3) Basophils (%) (Auto) 0 % (0-3) Neutrophils # (Auto) 6.0 x10^3/uL (1.8-7.7) Lymphocytes # (Auto) 1.9 x10^3/uL (1.0-4.8) Monocytes # (Auto) 0.9 x10^3/uL (0.0-1.1) Eosinophils # (Auto) 0.0 x10^3/uL (0.0-0.7) Basophils # (Auto) 0.0 x10^3/uL (0.0-0.2) Problem List s/p altmeier await bowel function LEONEL BACH MD Jun 18, 2019 13:05
[2019-06-18 15:00] VITALS: BP_SYST 119; BP_SYST 130; BP_DIAS 40; BP_DIAS 78
--- NOTE | 2019-06-18 16:06 | PATHOLOGY ---
[facility] Accession Number: [id number] . 01 Material submitted: . rectum - RECTAL PROLAPSE . 01 Clinical history: . Rectal prolapse . 02 Diagnosis: Segment of rectum and attached mesorectal fat, Altemeier procedure: - Mucosal prolapse changes of distal rectum showing congestion and superficial mucosal erosion. - Reactive changes of five mesorectal lymph nodes. . (JPM:mml; 06/18/2019) QLM 06/18/2019 1412 Local . 02 Electronically signed: . Jeremiah Gregory MD, Pathologist NPI- [id number] . 01 Gross description: . The specimen is received in formalin, labeled "Jeremiah Newman, rectal prolapse". Received is a segment of colon measuring 12.1 cm in length and ranges in diameter from 2.1 (proximal margin) to 6.1 cm (distal margin). Both margins are opened. The distal aspect displays a large amount of exposed red-brown mucosa. The attached pericolic fat measures up to 5.0 cm in thickness. The external surface is pink-mariee to pink-dangelo and striated in appearance. The specimen is opened longitudinally to reveal pink-mariee mucosa with normal architectural folds in the proximal half of the specimen. The distal half of the mucosa is red-brown and granular in appearance. No distinct nodules or lesions are noted grossly. Sectioning through the attached pericolic fat reveals five readily identifiable lymph nodes ranging in size from 0.3 to 0.6 cm. The specimen is submitted representatively as follows: . A1 proximal margin A2-A3 perpendicular sections through distal margin A4 promotional representative cross sections through proximal half of mucosa A5-A6 promotional representative cross-sections through distal half of mucosa A7 intact lymph nodes. (CAA; 06/17/2019) QAC/QAC 06/18/2019 1409 Local . 02 Pathologist provided ICD-10: K62.3 . 02 CPT . 621115 Specimen Comment: A courtesy copy of this report has been sent to [phone], [phone] Specimen Comment: [id number] Specimen Comment: Report sent to / DR NAVAS Performed at: 01 [facility] [address], [place] [id number] MD Jeffery Zavala MD Phone: [phone] Performed at: 02 [facility] [address] [place], [place] [id number] MD Jeremiah Gregory MD Phone: [phone]
[2019-06-18 19:00] VITALS: BP 124/73
[2019-06-18] MEDS: TAMSULOSIN 0.4 MG CAP.ER.24H. PO SCH (20:03)
[2019-06-18] MEDS: ENOXAPARIN 40 MG/0.4 ML SYRINGE. SQ SCH (20:04)
[2019-06-18] MEDS: MORPHINE SULFATE 2 MG/ML VIAL. IV PRN (22:52)
[2019-06-18 23:00] VITALS: BP 118/72
[2019-06-19] MEDS: MORPHINE SULFATE 2 MG/ML VIAL. IV PRN (02:35)
[2019-06-19] MEDS: IV RINGERS,LACTATED 1000ML 1,000 ML IV SCH ×3 (02:47→22:47)
[2019-06-19 03:00] VITALS: BP 121/80
[2019-06-19 07:00] VITALS: BP 116/70
[2019-06-19] MEDS: FERROUS SULFATE 325 MG TABLET. PO SCH (08:00)
[2019-06-19] MEDS: CITALOPRAM 20 MG TABLET. PO SCH (08:40)
[2019-06-19] MEDS: POLYETHYLENE GLYCOL 3350 17 GM PACKET. PO SCH ×2 (08:41→08:42)
[2019-06-19] MEDS: SENNOSIDES/DOCUSATE 8.6/50MG TABLET. PO SCH ×2 (08:41→22:39)
[2019-06-19] MEDS: MULTIVITAMIN with MINERAL TABLET. PO SCH (08:41)
[2019-06-19] MEDS: PANTOPRAZOLE 40 MG TABLET.DR. PO SCH (08:41)
[2019-06-19] MEDS: OXYBUTYNIN CHLORIDE 5 MG TABLET PO SCH ×3 (08:41→22:39)
[2019-06-19] MEDS: ASCORBIC ACID 500 MG TABLET PO SCH (09:00)
[2019-06-19] MEDS: IV NORMAL SALINE 1000ML BAG 1,000 ML IV SCH (10:47)
[2019-06-19 11:00] VITALS: BP 103/61
--- NOTE | 2019-06-19 11:31 | PDOC ---
SURGICAL PROGRESS NOTE Subjective Pt without c/o, madhu PO, passing flatus Vital Signs Vital Signs Date Time Temp Pulse Resp B/P (MAP) Pulse Ox O2 Delivery O2 Flow Rate FiO2 06/19/19 08:00 Room Air 06/19/19 07:00 98.5 100 18 116/70 (85) 93 98.5 I&O Intake and Output 06/19/19 07:00 Intake Total 940 ml Output Total 2900 ml Balance -1960 ml Intake Oral 940 ml Output Urine Total 2900 ml General: Alert, Oriented X3, Cooperative, No acute distress Abdomen: Soft, No tenderness Labs Laboratory Tests Test 06/18/19 04:10 White Blood Count 8.8 x10^3/uL (4.0-11.0) Red Blood Count 4.26 x10^6/uL (4.30-5.70) Hemoglobin 11.4 g/dL (13.0-17.5) Hematocrit 34.4 % (39.0-53.0) Mean Corpuscular Volume 81 fL (79-100) Mean Corpuscular Hemoglobin 27 pg (25-35) Mean Corpuscular Hemoglobin Concent 33 g/dL (31-37) Red Cell Distribution Width 15.0 % (11.5-14.5) Platelet Count 296 x10^3/uL (140-400) Neutrophils (%) (Auto) 68 % (31-73) Lymphocytes (%) (Auto) 22 % (24-48) Monocytes (%) (Auto) 10 % (0-9) Eosinophils (%) (Auto) 0 % (0-3) Basophils (%) (Auto) 0 % (0-3) Neutrophils # (Auto) 6.0 x10^3/uL (1.8-7.7) Lymphocytes # (Auto) 1.9 x10^3/uL (1.0-4.8) Monocytes # (Auto) 0.9 x10^3/uL (0.0-1.1) Eosinophils # (Auto) 0.0 x10^3/uL (0.0-0.7) Basophils # (Auto) 0.0 x10^3/uL (0.0-0.2) Problem List s/p altmeier ADAT await bowel fxn hopefully home tomorrow pending stools LEONEL BACH MD Jun 19, 2019 11:31
[2019-06-19 15:00] VITALS: BP 96/56
--- NOTE | 2019-06-19 15:56 | NUR ---
SW following. Discussed with RN, pt is from home alone. SW awaiting PT/OT recommendations, it has been ordered. RN advised awaiting bowel movement after surgery. SW will continue to follow.
[2019-06-19 19:00] VITALS: BP 85/52
[2019-06-19] MEDS: ENOXAPARIN 40 MG/0.4 ML SYRINGE. SQ SCH (21:00)
[2019-06-19] MEDS: TAMSULOSIN 0.4 MG CAP.ER.24H. PO SCH (22:39)
[2019-06-19 23:00] VITALS: BP 107/57
--- NOTE | 2019-06-20 00:41 | NUR ---
A senna pill was found on pt.'s floor this evening. It was placed in waste container.
[2019-06-20 03:00] VITALS: BP 121/73
[2019-06-20] MEDS: PANTOPRAZOLE 40 MG TABLET.DR. PO SCH (05:15)
[2019-06-20 07:00] VITALS: BP 101/53
[2019-06-20] MEDS: IV RINGERS,LACTATED 1000ML 1,000 ML IV SCH ×2 (07:22→18:47)
[2019-06-20] MEDS: FERROUS SULFATE 325 MG TABLET. PO SCH (07:22)
[2019-06-20] MEDS: CITALOPRAM 20 MG TABLET. PO SCH (07:22)
[2019-06-20] MEDS: ASCORBIC ACID 500 MG TABLET PO SCH (09:00)
[2019-06-20] MEDS: MULTIVITAMIN with MINERAL TABLET. PO SCH (09:00)
--- NOTE | 2019-06-20 09:05 | PDOC ---
SURGICAL PROGRESS NOTE Subjective Pt without new c/o, slept well, madhu diet, passing min flatus, but no stool Vital Signs Vital Signs Date Time Temp Pulse Resp B/P (MAP) Pulse Ox O2 Delivery O2 Flow Rate FiO2 06/20/19 07:00 98.6 66 16 101/53 (69) 95 Room Air 98.6 I&O Intake and Output 06/20/19 07:00 Intake Total 1080 ml Balance 1080 ml Intake Oral 1080 ml # Voids 2 General: Alert, Oriented X3, Cooperative, No acute distress Abdomen: Soft, No tenderness Problem List s/p altmeier appears to be stable, but will await stool prior to d/c not unanticipated, given pt's long standing constipation. Path is benign. LEONEL BACH MD Jun 20, 2019 09:05
[2019-06-20] MEDS: OXYBUTYNIN CHLORIDE 5 MG TABLET PO SCH ×3 (09:11→22:26)
[2019-06-20] MEDS: SENNOSIDES/DOCUSATE 8.6/50MG TABLET. PO SCH ×2 (09:11→22:26)
[2019-06-20] MEDS: POLYETHYLENE GLYCOL 3350 17 GM PACKET. PO SCH (09:11)
[2019-06-20] MEDS: IV NORMAL SALINE 1000ML BAG 1,000 ML IV SCH (10:47)
[2019-06-20 11:00] VITALS: BP 96/49
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
[2019-06-20 15:00] VITALS: BP 97/57
[2019-06-20 19:25] VITALS: BP 105/59
[2019-06-20] MEDS: TAMSULOSIN 0.4 MG CAP.ER.24H. PO SCH (21:00)
[2019-06-20] MEDS: ENOXAPARIN 40 MG/0.4 ML SYRINGE. SQ SCH (21:00)
[2019-06-20 23:41] VITALS: BP 98/62
[2019-06-21 03:49] VITALS: BP 101/56
[2019-06-21] MEDS: PANTOPRAZOLE 40 MG TABLET.DR. PO SCH (06:19)
[2019-06-21 07:00] VITALS: BP 109/53
[2019-06-21] MEDS: FERROUS SULFATE 325 MG TABLET. PO SCH (08:00)
[2019-06-21] MEDS: IV NORMAL SALINE 1000ML BAG 1,000 ML IV SCH (08:04)
[2019-06-21] MEDS: OXYBUTYNIN CHLORIDE 5 MG TABLET PO SCH ×3 (08:28→20:34)
[2019-06-21] MEDS: POLYETHYLENE GLYCOL 3350 17 GM PACKET. PO SCH (08:28)
[2019-06-21] MEDS: SENNOSIDES/DOCUSATE 8.6/50MG TABLET. PO SCH ×2 (08:28→20:34)
[2019-06-21] MEDS: ASCORBIC ACID 500 MG TABLET PO SCH (08:31)
[2019-06-21] MEDS: CITALOPRAM 20 MG TABLET. PO SCH (08:31)
[2019-06-21] MEDS: MULTIVITAMIN with MINERAL TABLET. PO SCH (08:31)
--- NOTE | 2019-06-21 09:55 | PDOC ---
KENNEDI MORAN APRN 06/21/19 0955: SURGICAL PROGRESS NOTE Subjective no bm yet reports some prolapse when up to bathroom yesterday-reduced with sitting, he does report some straining Vital Signs Vital Signs Date Time Temp Pulse Resp B/P (MAP) Pulse Ox O2 Delivery O2 Flow Rate FiO2 06/21/19 07:28 Room Air 06/21/19 07:00 97.9 60 16 109/53 (71) 94 97.9 I&O Intake and Output 06/21/19 07:00 Intake Total 880 ml Output Total 75 ml Balance 805 ml Intake Oral 880 ml Output Urine Total 75 ml # Voids 2 General: Alert, Oriented X3, Cooperative Abdomen: Soft, Other (no current prolapse ) Problem List i reviewed with Dr Goldman--some prolapse with straining continue laxatives, no straining will FU in AM, hold DC until BM DIANA DEL TORO MD 06/21/19 1250: SURGICAL PROGRESS NOTE Assessment/Plan Agree with above KENNEDI MORAN APRN Jun 21, 2019 09:55 DIANA DEL TORO MD Jun 21, 2019 12:50
[2019-06-21 11:00] VITALS: BP 119/63
[2019-06-21 15:00] VITALS: BP 118/72
[2019-06-21 19:25] VITALS: BP 120/72
[2019-06-21] MEDS: TAMSULOSIN 0.4 MG CAP.ER.24H. PO SCH (21:00)
[2019-06-21] MEDS: ENOXAPARIN 40 MG/0.4 ML SYRINGE. SQ SCH (21:00)
--- NOTE | 2019-06-21 21:30 | NUR ---
pt. went for a walk this evening. tolerated well.
[2019-06-21 23:05] VITALS: BP 117/70
[2019-06-22 02:55] VITALS: BP 126/75
[2019-06-22] MEDS: PANTOPRAZOLE 40 MG TABLET.DR. PO SCH (05:43)
[2019-06-22 07:00] VITALS: BP 115/69
[2019-06-22] MEDS: MULTIVITAMIN with MINERAL TABLET. PO SCH (07:31)
[2019-06-22] MEDS: ASCORBIC ACID 500 MG TABLET PO SCH (07:31)
[2019-06-22] MEDS: FERROUS SULFATE 325 MG TABLET. PO SCH (07:31)
[2019-06-22] MEDS: CITALOPRAM 20 MG TABLET. PO SCH (07:31)
[2019-06-22] MEDS: IV NORMAL SALINE 1000ML BAG 1,000 ML IV SCH (07:32)
[2019-06-22] MEDS: SENNOSIDES/DOCUSATE 8.6/50MG TABLET. PO SCH ×2 (07:50→21:18)
[2019-06-22] MEDS: OXYBUTYNIN CHLORIDE 5 MG TABLET PO SCH ×3 (07:50→21:18)
[2019-06-22] MEDS: POLYETHYLENE GLYCOL 3350 17 GM PACKET. PO SCH (07:50)
--- NOTE | 2019-06-22 08:55 | PDOC ---
SURGICAL PROGRESS NOTE Subjective still no bowel function frustrated Vital Signs Vital Signs Date Time Temp Pulse Resp B/P (MAP) Pulse Ox O2 Delivery O2 Flow Rate FiO2 06/22/19 07:09 Room Air 06/22/19 07:00 97.7 71 16 115/69 (84) 94 97.7 I&O Intake and Output 06/22/19 07:00 Intake Total 810 ml Balance 810 ml Intake Oral 810 ml # Voids 8 General: Alert, Oriented X3, Cooperative Abdomen: Soft, No tenderness Assessment/Plan will add in some additional laxatives KENNEDI MROAN APRN Jun 22, 2019 08:55
[2019-06-22] MEDS ORDERED: POLY17PO29 PO (09:00)
[2019-06-22] MEDS ORDERED: MAGNESIUM CITRATE 296 ML SOLUTION. PO ONE (09:00)
[2019-06-22] MEDS ORDERED: HYDR-2761 PO (09:00)
[2019-06-22] MEDS ORDERED: MAGNESIUM HYDROXIDE 2,400 MG/30 ML ORAL.SUSP. PO PRN (09:00)
[2019-06-22] MEDS ORDERED: SENN-22 PO (09:00)
--- NOTE | 2019-06-22 09:03 | DISCH ---
DISCHARGE INSTRUCTIONS Condition on Discharge Condition on Discharge: Stable Activity After Discharge Activity Instructions for Disc: Activity as tolerated Lifting Instructions after Dis: No heavy lifting, No pulling or pushing, Add. restrict see below (no straining ) Weight Bearing Status after Di: As tolerated Diet after Discharge Diet after Discharge: Regular Wound Incision Care Wound/Incision Care: No wound care needed Other wound/incision instructi: ok for showers Contacting the DRNury after DC Call your doctor for: Concerns you may have Follow-Up Follow up with: Dr Goldman 1-2 weeks, call to schedule [phone] KENNEDI MORAN APRN Jun 22, 2019 09:02
[2019-06-22] MEDS ORDERED: MAGNESIUM CITRATE 296 ML SOLUTION. PO PRN (09:15)
[2019-06-22 11:00] VITALS: BP 123/83
[2019-06-22 15:00] VITALS: BP 111/64
[2019-06-22 19:20] VITALS: BP 104/55
[2019-06-22] MEDS: TAMSULOSIN 0.4 MG CAP.ER.24H. PO SCH (21:00)
[2019-06-22] MEDS: ENOXAPARIN 40 MG/0.4 ML SYRINGE. SQ SCH (21:00)
[2019-06-22 23:16] VITALS: BP 114/59
--- NOTE | 2019-06-23 02:12 | NUR ---
Pt. had small BM in the evening and a large bowel movement this morning.
[2019-06-23 03:26] VITALS: BP 113/65
[2019-06-23 07:00] VITALS: BP 117/75
[2019-06-23] MEDS: PANTOPRAZOLE 40 MG TABLET.DR. PO SCH (07:30)
[2019-06-23] MEDS: FERROUS SULFATE 325 MG TABLET. PO SCH (08:00)
[2019-06-23] MEDS: MULTIVITAMIN with MINERAL TABLET. PO SCH (09:00)
[2019-06-23] MEDS: POLYETHYLENE GLYCOL 3350 17 GM PACKET. PO SCH (09:00)
[2019-06-23] MEDS: CITALOPRAM 20 MG TABLET. PO SCH (09:00)
[2019-06-23] MEDS: ASCORBIC ACID 500 MG TABLET PO SCH (09:00)
[2019-06-23] MEDS: OXYBUTYNIN CHLORIDE 5 MG TABLET PO SCH ×2 (09:12→14:24)
[2019-06-23] MEDS: SENNOSIDES/DOCUSATE 8.6/50MG TABLET. PO SCH (09:12)
[2019-06-23 11:00] VITALS: BP 114/84
--- NOTE | 2019-06-23 11:55 | PDOC ---
SURGICAL PROGRESS NOTE Subjective stool --however required the mag citrate Vital Signs Vital Signs Date Time Temp Pulse Resp B/P (MAP) Pulse Ox O2 Delivery O2 Flow Rate FiO2 06/23/19 11:00 97.7 84 18 114/84 (94) 93 Room Air 97.7 I&O Intake and Output 06/23/19 07:00 Intake Total 1130 ml Balance 1130 ml Intake Oral 1130 ml # Voids 3 # Bowel Movements 2 General: Alert, Oriented X3, Cooperative Abdomen: Soft, No tenderness Assessment/Plan will plan home today will ask GI to eval prior to dc for aggressive bowel regimen KENNEDI MORAN [employer] Jun 23, 2019 11:55
--- NOTE | 2019-06-23 12:41 | NUR ---
SW following. Discussed with RN, pt does not want to go to [facility], wants to return to his assisted living at [place], [place]. Possible discharge after pt is seen by GI. SW will continue to follow.
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
[2019-06-23 15:00] VITALS: BP 118/71
--- NOTE | 2019-06-23 17:21 | NUR ---
Pt. discharged to home with Rx sent to pharmacy per REMI Mccloud. Pt. verbalzied understanding of discharge instructions. pt. taken to [facility] assisted living via [facility] van. Spoke with nurse at [place] about d/c plan.
== END 2019-06-23 17:23 | disposition home or self-care (01) | DRG 330 ==
LOC: OPSVCIP 06-17 07:38 → 4 NORTH 06-17 14:13
PROVIDERS: ADMIT Surgery; ATTEND Surgery
PROC: 0DBP0ZZ Excision of Rectum, Open Approach (ICD-10-PCS; 2019-06-17)
PROC: 0DBN0ZZ Excision of Sigmoid Colon, Open Approach (ICD-10-PCS; principal; 2019-06-17 09:00)
DX: K62.3 Rectal prolapse (principal); G82.20 Paraplegia, unspecified; Q43.8 Other specified congenital malformations of intestine; K59.09 Other constipation; Z80.9 Family history of malignant neoplasm, unspecified
CPT/HCPCS: 36415; 85025; 87086; 88305; A7015; J0171; J1100; J1650; J2001; J2270; J2405; J2704; J2710; J3010; J3490; J7030; J7120; 97110; 97116; 97535; A4461; G0378

== ENCOUNTER → 2019-06-16 | Day surgery (SDC) | payer MEDICARE ==
[~2019-06-16] MED LIST changes: +IV RINGERS,LACTATED 1000ML 1,000 ML IV ONE; +IV RINGERS,LACTATED 1000ML 1,000 ML IV SCH; +LIDOCAINE 2% PF 5 ML VIAL. ONE; +PROPOFOL 20 ML IV ONE
--- NOTE | 2019-06-16 16:26 | PDOC4 ---
PROCEDURE Procedure Colonoscopy Indication: pre-op evaluation prior to rectal prolapse repair. Meds: per anesthesia Findings: DELANEY normal. --Scope advanced to estimated hepatic flexure or perhaps a bit beyond. Prep very poor in areas and unable to identify landmarks. No large lesions encountered. A clip was placed at the point of maximum visualization to estimate location. The distal 10cm of rectum was erythematous and "boggy" c/w the prolapsing portion. No retroflex done. Lexi. well. IMP: Redundant colon, but otherwise normal exam to limits given prep. REC: KUB to viz clip. Would proceed with prolapse repair. Can f/u with me prn. Thanks. GRUPO MARCUS MD Jun 16, 2019 16:26
[2019-06-16 17:03] VITALS: BP 148/70
--- NOTE | 2019-06-16 19:35 | RAD ---
Supine abdomen. HISTORY: Clip placed to quynh incomplete colonoscopy. Supine view the abdomen shows marked distention of the colon. There is a clip in the mid transverse colon. There is degenerative change and scoliosis in the spine. Lung bases are clear. IMPRESSION: 1. Distended colon. 2. Clip noted in the mid transverse colon, unless the patient has a very redundant sigmoid colon. Electronically signed by: Hosea Braga MD (06/16/2019 7:32 PM) [facility]
== END ==
LOC: ENDOS 13:35
PROVIDERS: ATTEND Internal Medicine Gastroenterology
DX: K62.5 Hemorrhage of anus and rectum (principal); K62.3 Rectal prolapse; F15.90 Other stimulant use, unspecified, uncomplicated; Z87.39 Personal history of other diseases of the musculoskeletal system and connective tissue; Z72.89 Other problems related to lifestyle
CPT/HCPCS: 45378; 74018; J2001; J2704